=== PATIENT | female | born 1985 | race Caucasian/White ===

== ENCOUNTER 2021-02-21 05:22 | Emergency (ER) | payer BC ==
--- OUTSIDE RECORDS SUMMARY | 2021-02-21 05:24 | XMS REPORT | Continuity of Care Document ---
:1985 Author Organization [facility] t Address 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 Clinician Provider, [facility] Attending Clinician Unavailable Unknown Attending Clinician Unavailable Benitez AVINA Attending Clinician UNKNOWN Attending Clinician Unavailable Doctor Unassigned, Name Attending Clinician Unavailable Gwen AVINA Attending Clinician Elliot ALATORRE Attending Clinician Unavailable Payers Payer Name Policy Type Policy Number Effective Date Expiration Date S ource Problems Condition Condition Condition Status Onset Resolution Last Treating Co mments Source Name Details Category Date Date Treatment Clinician Date Vitamin D Vitamin D Disease Active Uni vers deficiency deficiency 7-11 it y of 00:00: [address] Multiple Multiple Disease Active Unive rs thyroid thyroid 8-25 ity of nodules nodules 00:00: [address] Prediabete Prediabete Disease Active U jaleesa s s 8-25 ity of 00:00: [address] Irregular Irregular Disease Active Uni vers menstrual menstrual 8-25 ity of cycle cycle 00:00: [address] Galactorrh Galactorrh Disease Active U jaleesa ea ea 8-25 ity of 00:00: [address] HLD HLD Disease Active Univers (hyperlipi (hyperlipi 8-25 it y of demia) demia) 00:00: [place] 00 [facility] Hirsutism Hirsutism Disease Active Uni vers 08-18 ity of 00:00: [place] 00 [facility] PCOS PCOS Disease Active Univers (polycysti (polycysti 08-18 it y of c ovarian c ovarian 00:[place] syndrome[place] syndrome[place] 00 [facility] Branch Status Status Disease Active Overview: Univer s post post 11-24 Formattin ity of 00:00: g of this Kenneth as delivery delivery 00 note Medica l might be Branch different from the original. ICD10 Diagnosis Term Climbing Guide Utility Asthma Asthma Disease Active Univers 11-17 ity of 00:00: [place] 00 [facility] Allergies, Adverse Reactions, Alerts Allergy Allergy Status Severity Reaction(s) Onset Inactive Treating Comm ents Source Name Type Date Date Clinician Penicill Propensi Active Unknown - Yeast Uni vers in ty to See comments 11-02 infection i ty of adverse 00:00: s [place] reaction [facility] [place] PENICILL DRUG Active Unknown-Cmnt Un jonathan IN INGREDI 11-02 ity of 00:00: [place] 00 [facility] Latex Propensi Active Rash 2014-03 Univers ty to 0-30 ity of adverse 00:00: [place] reaction [facility] LATEX DRUG Active Rash 2014-03 Univers INGREDI 0-30 ity of 00:00: [place] 00 [facility] Cabergol Propensi Active Hallucinatio Univers ine ty to ns 26 ity of adverse 00:00: [place] reaction [facility] [place] CABERGOL DRUG Active Hallucinates Un jonathan INE INGREDI 08-17 ity of 00:00: [place] 00 [facility] Social History Social Habit Start Date Stop Date Quantity Comments Source History [facility] University o f Alcohol Std Drinks [facility] History [facility] o f Alcohol Binge [facility] Branch Exposure to Not sure University SARS-CoV-2 (event) [facility] History of tobacco Cigarette Smoker University of use [facility] Cigarettes smoked 2017-11-02 2017-11-02 Univers ity of current (pack per 00:00:00 00:00:00 [facility] ) - Reported Branch Cigarette 2017-11-02 2017-11-02 University of pack-years 00:00:00 00:00:00 [facility] Tobacco use and 2017-11-02 2017-11-02 Never used Universit y of exposure 00:00:00 00:00:00 [facility] Alcohol intake 2017-11-02 2017-11-02 Current drinker Unive rsity of 00:00:00 00:00:00 of alcohol [facility] (finding) [place] Alcohol Comment 2017-11-02 2017-11-02 social drinker Unive rsity of 00:00:00 00:00:00 [facility] Sex [birth year] Universit y of 00:00:00 00:00:00 [facility] Smoking Status Start Date Stop Date Source Current every day smoker 2017-11-02 00:00:00 Uni versity of [facility] Medications Ordered Filled Start Stop Current Ordering Indication Dosage Frequency Signature Comments Components Source Medication Medication Date Date Medication? Clinician (SIG) Name Name dexamethaso 2020-03- No [id number] 10mg U nivers ne 0- 10- ity of (DECADRON 20:45: 19:55 [place] PHOSPHATE) 00 :00 Medical injection Branch 10 mg dexamethaso 2020-03- No [id number] 10mg 10 mg, Univers ne 0-17 01- Intramuscu ity of (DECADRON 20:45: 19:55 lar, ONCE, [place] PHOSPHATE) 00 :00 1 dose, On Med ical injection Tue Branch 10 mg 01/17/21 at 1545, Routine ALBUTEROL 2020-03- Yes Inhale. Univ ers INHALE 0-17 01- ity of 00:00: 04:59 [place] 00 :00 Medical Branch ALBUTEROL 2020-03- Yes Inhale. Univ ers INHALE 0-17 01- ity of 00:00: 04:59 [place] 00 :00 Medical Branch ALBUTEROL 2020-03- Yes Inhale. Univ ers INHALE 0-17 01- ity of 00:00: 04:59 [place] 00 :00 Medical Branch bromphenira 2020-03- Yes [id number] 5mL Take 5 mL Univers mine-pseudo 0-01-28 by mouth 4 i ty of ephedrine-D 00:00: 04:59 (four) Kenneth as M (BROMFED 00 :00 times Medical DM) 2-30-10 daily as Bran ch mg/5 mL needed for syrup Congestion /Allergies or Cough for up to 10 days. bromphenira 2020-03- Yes [id number] 5mL Take 5 mL Univers mine-pseudo 0-26 11-06 by mouth 4 i ty of ephedrine-D 00:00: 04:59 (four) [place] as M (BROMFED 00 :00 times Medical DM) 2-30-10 daily as Bran ch mg/5 mL needed for syrup Congestion /Allergies or Cough for up to 10 days. bromphenira 2020-03- Yes [id number] 5mL Take 5 mL Univers mine-pseudo 0-26 11-06 by mouth 4 i ty of ephedrine-D 00:00: 04:59 (four) [place] as M (BROMFED 00 :00 times Medical DM) 2-30-10 daily as Bran ch mg/5 mL needed for syrup Congestion /Allergies or Cough for up to 10 days. codeine-gua 2020-03- Yes 5mL Take 5 mL Univers ifenesin 0-26 11-03 by mouth ity of 10-100 mg/5 00:00: 04:59 at bedtime [place] mL oral 00 :00 as needed Medical solution for Cough Branch for up to 7 days. Indication s: cough codeine-gua 2020-03- Yes 5mL Take 5 mL Univers ifenesin 0-26 11-03 by mouth ity of 10-100 mg/5 00:00: 04:59 at bedtime [place] mL oral 00 :00 as needed Medical solution for Cough Branch for up to 7 days. Indication s: cough codeine-gua 2020-03- Yes 5mL Take 5 mL Univers ifenesin 0-26 11-03 by mouth ity of 10-100 mg/5 00:00: 04:59 at bedtime [place] mL oral 00 :00 as needed Medical solution for Cough Branch for up to 7 days. Indication s: cough acetaminoph 2017- Yes [id number] 03/26 Univers en-codeine 8-11 tab Every ity of 300-30 mg 00:00: 4hrs as [place] tablet 00 needed for Medical pain or Branch cough requiring narcotic acetaminoph Yes [id number] 1/2 - 1 Univers en-codeine 8-11 tab Every ity of 300-30 mg 00:00: 4hrs as [place] tablet 00 needed for Medical pain or Branch cough requiring narcotic acetaminoph 2018-0 Yes [id number] 03/26 - 1 Univers en-codeine 8-11 tab Every ity of 300-30 mg 00:00: 4hrs as [place] tablet 00 needed for Medical pain or Branch cough requiring narcotic acetaminoph 2018-0 Yes [id number] 03/26 - Univers en-codeine 8-11 tab Every ity of 300-30 mg 00:00: 4hrs as [place] tablet 00 needed for Medical pain or Branch cough requiring narcotic SYMBICORT 2014-0 Yes Univers 160-4.5 4-29 ity of mcg/actuati 00:00: [place] on inhaler 00 Medical Branch SYMBICORT 2015-0 Yes Univers 160-4.5 4-29 ity of mcg/actuati 00:00: [place] on inhaler 00 Medical Branch SYMBICORT 2015-0 Yes Univers 160-4.5 4-29 ity of mcg/actuati 00:00: [place] on inhaler 00 Medical Branch SYMBICORT 2015-0 Yes Univers 160-4.5 4-29 ity of mcg/actuati 00:00: [place] on inhaler 00 Medical Branch Immunizations Ordered Filled Immunization Date Status Comments [facility] e Immunization Name Name Pneumococcal 7 2009-03-25 Completed University of Conjugate, PCV7 00:00:00 [facility] (Prevnar7) Branch Pneumococcal 7 2009-03-25 Completed University of Conjugate, PCV7 00:00:00 [facility] (Prevnar7) Branch Pneumococcal 7 2009-03-25 Completed University of Conjugate, PCV7 00:00:00 [facility] (Prevnar7) Branch Pneumococcal 7 2009-03-25 Completed University of Conjugate, PCV7 00:00:00 [facility] (Prevnar7) Branch Influenza Virus 2009-02-22 Completed Universit y of Vaccine - Whole 00:00:00 [facility] Influenza Virus 2009-02-22 Completed Universit y of Vaccine - Whole 00:00:00 [facility] Influenza Virus 2009-02-22 Completed Universit y of Vaccine - Whole 00:00:00 [facility] Influenza Virus 2009-02-22 Completed Universit y of Vaccine - Whole 00:00:00 [facility] ical [place] Vital Signs Vital Name Observation Time Observation Value Comments Source Systolic blood 2021-01-17 19:14:00 130 mm[Hg] Univer sity of pressure [facility] Diastolic blood 2021-01-17 19:14:00 96 mm[Hg] Unive rsity of pressure [facility] Heart rate 2021-01-17 19:11:00 96 /min [facility] Body temperature 2021-01-17 19:11:00 36.67 Jael [facility] Respiratory rate 2021-01-17 19:11:00 16 /min [facility] Body height 2021-01-17 19:11:00 172.7 cm [facility] Body weight 2021-01-17 19:11:00 101.209 kg [facility] BMI 2021-01-17 19:11:00 33.93 kg/m2 [facility] Oxygen saturation in 2021-01-17 19:11:00 97 /min [facility] Arterial blood by [facility] Pulse oximetry Branch Procedures Procedure Date / Time Performed Performing Clinician Sour e XR CHEST 2 VW 2021-01-17 20:02:34 Ivan Phelps [facility] CONSENT/REFUSAL FOR 2021-01-17 18:51:35 Doctor Unassigned, No [facility] DIAGNOSIS AND Name Medical [place] TREATMENT ASSIGNMENT OF BENEFITS 2021-01-17 18:51:23 Doctor Unassigned, No [facility] Encounters Start End Encounter Admission Attending Care Care Encounter Source Date/Time Date/Time Type Type Clinicians Facility Department ID 2021-01-17 2021-01-[address] [facility] [id number] [facility] 14:40:30 23:59:00 Encounter [facility] [id number] Dodie [id number] Kenneth as Quentin?Blea [id number] Ia belle baer [address] [place] [facility] 2021-01-17 2021-01-17 Urgent Provider, [facility] [id number] Univers 13:58:03 15:06:49 Care Unknown, [facility] [id number] ity of Lacie Marquiston [id number] [place] Quentin?Blea [id number] [address] Medical Office [facility] 2021-01-17 2021-01-17 Outpatient R [facility] [id number] Univers 14:20:00 14:20:00 [id number] ity of [facility] 2021-01-17 2021-01-17 Outpatient R UNKNOWN, [facility] [id number] Univers 14:20:00 14:20:00 ATTENDING ity [facility] 2021-01-17 2021-01-17 Orders Doctor LAKSHMI [id number] Univers 00:00:00 00:00:00 Only Unassigned, GORDY [id number] ity of [place] [facility] [id number] Kenneth as [id number] [address] 2021-01-17 2021-01-17 Telephone [facility] [id number] Univers 00:00:00 00:00:00 , [facility] [id number] ity of [place] [id number] Kenneth as Quentin?Blea [id number] [address] Medical Office [facility] 2019-08-21 2019-08-21 [facility] [id number] Univers 09:30:00 09:30:00 DANA ity [facility] 2019-08-21 2019-08-21 Outpatient R [facility] [id number] Univers 09:30:00 09:30:00 [facility] [id number] [facility] This patient has no known results.
--- NOTE | 2021-02-21 06:10 | EDPHYS ---
Physician Documentation [facility] Name: Libra Baptiste Age: 35 yrs Sex: Female : 1985 Arrival Date: 02/21/2021 Time: 05:26 Bed 10 Private MD: ED Physician Noel Brito HPI: 02/21 06:04 This 35 yrs old Female presents to ER via Ambulatory with complaints of Eye rn Swelling, cough, congestion. 06:04 The patient is experiencing matting or discharge, tearing, The patient sustained None. rn to both eyes, caused by an unknown mechanism. Onset: The symptoms/episode began/occurred yesterday. Duration: the symptoms are continuous. Aggravated by closing eye, opening eye, rubbing, Alleviated by nothing. Associated signs and symptoms: Pertinent positives: runny nose. Patient wears soft contacts, has had LASIK surgery. Severity of symptoms: At their worst the symptoms were moderate in the emergency department the symptoms are unchanged. The patient has not experienced similar symptoms in the past. The patient has not recently seen a physician. Patient reports started yesterday with cough and congestion, some mild irritation of her eyes bilaterally, worsened today, now draining greenish clear fluid out of both eyes. No fever. No trauma or injury to eyes. No chemicals in eyes. Reports is having work done in the house and they were cutting [place] with dust everywhere and thinks irritated her sinuses and triggered her asthma.. 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 - Social history:: Smoking status: Patient reports the use of cigarette tobacco products, smokes one-half pack cigarettes per day. - Family history:: not pertinent. - Hospitalizations: : No recent hospitalization is reported. ROS: 06:04 Constitutional: Negative for fever, chills, and weight loss, Eyes: Positive for rn swelling and drainage ENT: Positive for sore throat and congestion Cardiovascular: Negative for chest pain, palpitations, and edema, Respiratory: Positive for cough Abdomen/GI: Negative for abdominal pain, nausea, vomiting, diarrhea, and constipation, MS/Extremity: Negative for injury and deformity, Skin: Negative for injury, rash, and discoloration, Neuro: Negative for numbness, tingling, and seizure. Exam: 06:04 Constitutional: This is a well developed, well nourished patient who is awake, alert, rn and in no acute distress. Head/Face: Normocephalic, atraumatic. Eyes: Bilateral periorbital swelling, clear/green drainage from both eyes, no corneal defects or ulcerations noted. Pupils equally round and reactive to light. No hyphema or hypopyon noticed. ENT: Mild pharyngeal erythema without stridor or exudate Cardiovascular: Tachycardic, regular. No pulse deficit Respiratory: Speaking full sentences, unlabored. No retractions Skin: Warm, dry MS/ Extremity: Pulses equal, no cyanosis. Neuro: Awake and alert, GCS 15 Vital Signs: 05:46 BP 139 / 98; Pulse 105; Resp 18; Temp 98.6(O); Pulse Ox 98% on R/A; Weight 101.6 kg lp1 (R); Height 5 ft. 8 in. (172.72 cm); Pain 8/10; 05:46 Body Mass Index 34.06 (101.60 kg, 172.72 cm) lp1 MDM: 05:58 Patient medically screened. rn 06:04 Differential diagnosis: Allergic conjunctivitis in Infectious conjunctivitis in Viral rn syndrome, allergic phenomena, asthma. Data reviewed: vital signs, nurses notes, and as a result, I will discharge patient. Counseling: I had a detailed discussion with the patient and/or guardian regarding: the historical points, exam findings, and any diagnostic results supporting the discharge/admit diagnosis, the need for outpatient follow up, to return to the emergency department if symptoms worsen or persist or if there are any questions or concerns that arise at home. Special discussion: I discussed with the patient/guardian in detail that at this point there is no indication for admission to the hospital. It is understood, however, that if the symptoms persist or worsen the patient needs to return immediately for re-evaluation. Based on the history and exam findings, there is no indication for further emergent testing or inpatient evaluation. I discussed with the patient/guardian the need to see the primary care provider for further evaluation of the symptoms. Administered Medications: 06:20 Drug: SOLU-Medrol (methylPREDNISolone sodium succinate) 125 mg Route: IM; Site: right lp1 gluteus; 06:56 Follow up: Response: No adverse reaction lp1 06:31 Drug: Xopenex (levalbuterol) 1.25 mg Route: Inhalation; lp1 06:56 Follow up: Response: No adverse reaction; Marked relief of symptoms lp1 Disposition Summary: 02/21/21 06:09 Discharge Ordered Location: Home rn Problem: new rn Symptoms: have improved rn Condition: Stable rn Diagnosis - Unspecified acute conjunctivitis, bilateral rn - Unspecified asthma, uncomplicated rn - Allergic rhinitis, unspecified rn Followup: rn - With: Private Physician - When: As needed - Reason: Recheck today's complaints, Re-evaluation by your physician Discharge Instructions: - Discharge Summary Sheet rn - Bacterial Conjunctivitis, Adult rn - How to Use Eye Drops and Eye Ointments rn - Allergic Rhinitis, Adult rn Forms: - Medication Reconciliation Form rn - Thank You Letter rn - Antibiotic flame burner - Prescription Opioid Use rn Prescriptions: - Prednisone 20 mg Oral Tablet - take 3 tablets by ORAL route once daily for 5 days; 15 tablet; Refills: 0, rn Product Selection Permitted - Vigamox 0.5 % Ophthalmic Drops - instill 1 drop by OPHTHALMIC route every 8 hours for 7 days; 5 milliliter; rn Refills: 0, Product Selection Permitted Signatures: Noel Brito MD MD rn Pena, Laura, RN RN lp1
--- NOTE | 2021-02-21 06:10 | ER ---
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 Coronavirus screen: At this time, the client does not indicate any symptoms associated with coronavirus-19. Ebola Screen: No symptoms or risks identified at this time. Initial Sepsis Screen: Does the patient meet any 2 criteria? No. Patient's initial sepsis screen is negative. Does the patient have a suspected source of infection? No. Patient's initial sepsis screen is negative. Risk Assessment: Do you want to hurt yourself or someone else? Patient reports no desire to harm self or others. Onset of symptoms was February 21, 2021. 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 - Social history:: Smoking status: Patient reports the use of cigarette tobacco products, smokes one-half pack cigarettes per day. - Family history:: not pertinent. - Hospitalizations: : No recent hospitalization is reported. Screenin:55 Abuse screen: Denies threats or abuse. Denies injuries from another. Nutritional lp1 screening: No deficits noted. Tuberculosis screening: No symptoms or risk factors identified. Fall Risk None identified. Assessment: 05:55 General: Appears in no apparent distress. Behavior is calm, cooperative. Pain: lp1 Complains of pain in right eye and left eye Pain currently is 8 out of 10 on a pain scale. Quality of pain is described as burning. Neuro: No deficits noted. Cardiovascular: Patient's skin is warm and dry. Respiratory: Airway is patent Respiratory effort is even, unlabored. GI: No signs and/or symptoms were reported involving the gastrointestinal system. : No signs and/or symptoms were reported regarding the genitourinary system. EENT: Eyes are tearing on right eye and left eye left upper eyelid noted to have edema and swelling,. Reports nasal congestion. Derm: Skin is pink, warm \\T\\ dry. Musculoskeletal: No deficits noted. 06:46 Reassessment: Provider notified of patient reporting, "I just feel like my chest is lp1 tight and I can't get a good breath". Vital Signs: 05:46 BP 139 / 98; Pulse 105; Resp 18; Temp 98.6(O); Pulse Ox 98% on R/A; Weight 101.6 kg lp1 (R); Height 5 ft. 8 in. (172.72 cm); Pain 8/10; 05:46 Body Mass Index 34.06 (101.60 kg, 172.72 cm) lp1 ED Course: 05:26 Patient arrived in ED. wm 05:54 Triage completed. lp1 05:54 Arm band placed on. lp1 05:55 Patient has correct armband on for positive identification. lp1 05:58 Noel Brito MD is Attending Physician. rn 06:12 Isidra Bourgeois RN is Primary Nurse. lp1 06:47 No provider procedures requiring assistance completed. Patient did not have IV access lp1 during this emergency room visit. Administered Medications: 06:20 Drug: SOLU-Medrol (methylPREDNISolone sodium succinate) 125 mg Route: IM; Site: right lp1 gluteus; 06:56 Follow up: Response: No adverse reaction lp1 06:31 Drug: Xopenex (levalbuterol) 1.25 mg Route: Inhalation; lp1 06:56 Follow up: Response: No adverse reaction; Marked relief of symptoms lp1 Outcome: 06:09 Discharge ordered by . rn 06:56 Discharged to home ambulatory. lp1 06:56 Condition: good 06:56 Discharge instructions given to patient, Instructed on discharge instructions, follow up and referral plans. medication usage, Demonstrated understanding of instructions, follow-up care, medications, Prescriptions given X 2. 06:59 Patient left the ED. lp1 Signatures: Noel Brito MD MD rn Isidra Bourgeois RN RN lp1 Raiza Machado
[2021-02-21] MEDS ORDERED: METHYLPREDNISOLONE 125 MG INJ ONE (06:12)
[2021-02-21] MEDS ORDERED: LEVALBUTEROL 1.25 MG/3 ML NEB ONE (06:28)
[2021-02-21 07:06] VITALS: BP 139/98; TEMP 98.6; O2SAT 98
== END 2021-02-21 06:59 | disposition home or self-care (01) ==
LOC: ER 05:22
DX: H10.33 Unspecified acute conjunctivitis, bilateral (principal); J45.909 Unspecified asthma, uncomplicated; Z88.0 Allergy status to penicillin; F17.210 Nicotine dependence, cigarettes, uncomplicated
CPT/HCPCS: 96372; 99284; J2930

== ENCOUNTER 2023-03-03 07:26 | Emergency (ER) | payer BC ==
--- OUTSIDE RECORDS SUMMARY | 2023-03-03 07:28 | XMS REPORT | Continuity of Care Document ---
Author Name Unknown Address [address] [facility] [address] [place] [address] [facility] Address [address] [facility] 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 Attending Clinician [phone] Provider, [facility] Attending Clinician Unavailable Unknown, Attending Attending Clinician UnavailLacie Lai MD Attending Clinician [phone] UNKNOWN, ATTENDING Attending Clinician Unavailab luis Doctor Unassigned, [place]ool Attending Clinician U Kimberli Vincent MD Attending Clinician [phone] DANA ALATORRE Attending Clinician Unavailable Payers Payer Name Policy Type Policy Number Effective Date Expirati on Date Source Problems Condition Name Condition Details Condition Category Status Onset Date Resolution Date Last Treatment Date Treating Clinician Comments Source Vitamin D deficiency Vitamin D deficiency Disease Active 10-02 00:00: 00 [facility] Multiple thyroid nodules Multiple thyroid nodules Disease Active 11-16 00:00: 00 [facility] Prediabete s Prediabete s Disease Active 11-16 00:00: 00 [facility] Irregular menstrual cycle Irregular menstrual cycle Disease Active 11-16 00:00: 00 [facility] Galactorrh ea Galactorrh ea Disease Active 11-16 00:00: 00 [facility] HLD (hyperlipi demia) HLD (hyperlipi demia) Disease Active 11-16 00:00: 00 [facility] Hirsutism Hirsutism Disease Active 08-18 00:00: 00 [facility] PCOS (polycysti c ovarian syndrome) PCOS (polycysti c ovarian syndrome) Disease Active 08-18 00:00: 00 [facility] Status post delivery Status post delivery Disease Active 11-24 00:00: 00 Overview: Formattin g of this note might be different from the original. 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 [facility] Asthma Asthma Disease Active 11-17 00:00: 00 [facility] Allergies, Adverse Reactions, Alerts Allergy Name Allergy Type Status Severity Reaction(s) Onset Date Inactive Date Treating Clinician Comments Source Penicill in Propensi ty to adverse reaction s Active Unknown - See comments 11-02 00:00: 00 Yeast infection s [facility] PENICILL IN DRUG INGREDI Active Unknown-Cmnt 11-02 00:00: 00 [facility] Latex Propensi ty to adverse reaction s Active Rash 2014-03 00:00: 00 [facility] LATEX DRUG INGREDI Active Rash 2014-03 00:00: 00 [facility] Cabergol ine Propensi ty to adverse reaction s Active Hallucinatio ns 08-17 00:00: 00 [facility] CABERGOL INE DRUG INGREDI Active Hallucinates 08-17 00:00: 00 [facility] Social History Social Habit Start Date Stop Date Quantity Comments Source History SDOH Alcohol Frequency [facility] History SDOH Alcohol Std Drinks [facility] History SDOH Alcohol Binge [facility] Exposure to SARS-CoV-2 (event) Not sure [facility] History of tobacco use Cigarette Smoker [facility] Cigarette pack-years 2017-11-02 00:00:00 2017-11-02 00:00:00 [facility] Tobacco use and exposure 2017-11-02 00:00:00 2017-11-02 00:00:00 Never used [facility] Alcohol intake 2017-11-02 00:00:00 2017-11-02 00:00:00 Current drinker of alcohol (finding) [facility] Alcohol Comment 2017-11-02 00:00:00 2017-11-02 00:00:00 social drinker [facility] Cigarettes smoked current (pack per day) - Reported 2017-11-02 00:00:00 2017-11-02 00:00:00 [facility] Sex Assigned At 1985 00:00:00 1985 00:00:00 [facility] Smoking Status Start Date Stop Date Source Current every day smoker 2017-11-02 00:00:00 [facility] Medications Ordered Medication Name Filled Medication Name Start Date Stop Date Current Medication? Ordering Clinician Indication Dosage Frequency Signature (SIG) Comments Components Source dexamethaso ne (DECADRON PHOSPHATE) injection 10 mg 2020-03 20:45: 00 01-17 19:55 :00 No [id number] 10mg [facility] dexamethaso ne (DECADRON PHOSPHATE) injection 10 mg 2020-03 20:45: 00 01-17 19:55 :00 No [id number] 10mg 10 mg, Intramuscu lar, ONCE, 1 dose, On Sat01/17/21 at 1545, Routine [facility] ALBUTEROL INHALE 2020-03 00:00: 00 01-18 04:59 :00 No Inhale. [facility] ALBUTEROL INHALE 2020-03 00:00: 00 01-18 04:59 :00 No Inhale. [facility] ALBUTEROL INHALE 2020-03 00:00: 00 01-18 04:59 :00 No Inhale. [facility] bromphenira mine-pseudo ephedrine-D M (BROMFED DM) 2-30-10 mg/5 mL syrup 2020-03 00:00: 00 01-28 04:59 :00 No [id number] 5mL Take 5 mL by mouth 4 (four) times daily as needed for Congestion /Allergies or Cough for up to 10 days. [facility]-pseudo ephedrine-D M (BROMFED DM) 2-30-10 mg/5 mL syrup 2020-03 0-26 00:00: 00 01-28 04:59 :00 No [id number] 5mL Take 5 mL by mouth 4 (four) times daily as needed for Congestion /Allergies or Cough for up to 10 days. [facility] bromphenira mine-pseudo ephedrine-D M (BROMFED DM) 2-30-10 mg/5 mL syrup 2020-03 0 00:00: 00 01-28 04:59 :00 No [id number] 5mL Take 5 mL by mouth 4 (four) times daily as needed for Congestion /Allergies or Cough for up to 10 days. [facility] codeine-gua ifenesin 10-100 mg/5 mL oral solution 2020-03 0 00:00: 00 01-25 04:59 :00 No 5mL Take 5 mL by mouth at bedtime as needed for Cough for up to 7 days. Indication s: cough [facility] codeine-gua ifenesin 10-100 mg/5 mL oral solution 2020-03 0 00:00: 00 01-25 04:59 :00 No 5mL Take 5 mL by mouth at bedtime as needed for Cough for up to 7 days. Indication s: cough [facility] codeine-gua ifenesin 10-100 mg/5 mL oral solution 2020-03 0 00:00: 00 01-25 04:59 :00 No 5mL Take 5 mL by mouth at bedtime as needed for Cough for up to 7 days. Indication s: cough [facility] acetaminoph en-codeine 300-30 mg tablet 11-02 00:00: 00 Yes [id number] 1/2 - 1 tab Every 4hrs as needed for pain or cough requiring narcotic [facility] acetaminoph en-codeine 300-30 mg tablet 11-02 00:00: 00 Yes [id number] 1/2 - 1 tab Every 4hrs as needed for pain or cough requiring narcotic [facility] acetaminoph en-codeine 300-30 mg tablet 11-02 00:00: 00 Yes [id number] 1/2 - 1 tab Every 4hrs as needed for pain or cough requiring narcotic [facility] acetaminoph en-codeine 300-30 mg tablet 11-02 00:00: 00 Yes [id number] 1/2 - 1 tab Every 4hrs as needed for pain or cough requiring narcotic [facility] SYMBICORT 160-4.5 mcg/actuati on inhaler 07-21 00:00: 00 Yes [facility] SYMBICORT 160-4.5 mcg/actuati on inhaler 07-21 00:00: 00 Yes [facility] SYMBICORT 160-4.5 mcg/actuati on inhaler 07-21 00:00: 00 Yes [facility] SYMBICORT 160-4.5 mcg/actuati on inhaler 07-21 00:00: 00 Yes [facility] Vital Signs Vital Name Observation Time Observation Value Comments S ource Systolic blood pressure 2021-01-17 19:14:00 130 mm[Hg] [facility] Diastolic blood pressure 2021-01-17 19:14:00 96 mm[Hg] [facility] Heart rate 2021-01-17 19:11:00 96 [facility] Body temperature 2021-01-17 19:11:00 36.67 Jael [facility] Respiratory rate 2021-01-17 19:11:00 16 /min [facility] Body height 2021-01-17 19:11:00 172.7 cm [facility] Body weight 2021-01-17 19:11:00 101.209 kg [facility] BMI 2021-01-17 19:11:00 33.93 kg/m2 [facility] Oxygen saturation in Arterial blood by Pulse oximetry 2021-01-17 19:11:00 97 /min [facility] Procedures Procedure Date / Time Performed Performing Clinicia n Source XR CHEST 2 VW 2021-01-17 20:02:[address]US[facility] FOR DIAGNOSIS AND TREATMENT 2021-01-17 18:51:35 Doctor Unassigned, Mccool [facility] ASSIGNMENT OF BENEFITS 2021-01-17 18:51:23 Docto r Unassigned, Mccool [facility] Encounters Start Date/Time End Date/Time Encounter Type Admission Type Attending Clinicians Care Facility Care Department Encounter ID Source 2021-01-17 14:40:30 2021-01-17 23:59:00 Hospital Encounter Ivan Phelps [facility] 1..[id number] [facility] 2021-01-17 13:58:03 2021-01-17 15:06:49 Urgent Care Provider, [facility] Unknown, Attending Lacie Marquis [facility] 1..[id number] [facility] 2021-01-17 14:20:00 2021-01-17 14:20:00 Outpatient R [facility] [id number] [facility] 2021-01-17 14:20:00 2021-01-17 14:20:00 Outpatient R UNKNOWN, ATTENDING [facility] [id number] [facility] 2021-01-17 00:00:00 2021-01-17 00:00:00 Orders Only Doctor Unassigned, Mccool [facility] 1..[id number] [facility] 2021-01-17 00:00:2021-01-17 00:00:00 Telephone Gwen Kimberli [facility] Ileana Saavedra[facility] [id number] [facility] 2019-08-21 09:30:00 2019-08-21 09:30:00 Outpatient DANA HERNANDEZ [facility] [id number] [facility] 2019-08-21 09:30:00 2019-08-21 09:30:00 Outpatient DANA HERNANDEZ [facility] [id number] [facility]
[2023-03-03] MEDS ORDERED: NA CHLORIDE 0.9% 1,000 ML ONE (08:02)
[2023-03-03 08:04] LABS: Absolute Lymphocytes (CBC) 0.2 K/uL (0.7-4.9); Hematocrit 42.4 % (36.0-45.0); Lymphocytes % 4.2 % (15.3-44.8); MCV 84.1 fL (80-100); MPV 7.2 fL (7.6-11.3); Platelets 294 thou/uL (152-406); RBC Red Blood Cell Count 5.04 M/uL (3.86-4.86)
[2023-03-03 08:16] LABS: Potassium 3.2 mEq/L (3.5-5.1)
[2023-03-03 08:28] LABS: SARS-CoV-2 Antigen Rapid Res Negative (Negative)
--- NOTE | 2023-03-03 08:38 | RAD REPORT ---
EXAM DESCRIPTION: RAD - Chest Pa And Lat (2 Views) - 03/03/2023 8:31 am CLINICAL HISTORY: DYSPNEA Chest pain. COMPARISON: Chest Pa And Lat (2 Views) dated 08/15/2020; Chest Pa And Lat (2 Views) dated 08/28/2019; C HEST PA AND LAT 2 VIEW dated 06/13/2011; CHEST PA AND LAT 2 VIEW dated 11/14/2009 FINDINGS: Slight prominence of the interstitial markings could be related to viral infection or reac tive airway disease. No focal consolidation typical of pneumonia is seen. The heart is normal in size . No displaced fractures. Small hiatal hernia.
--- NOTE | 2023-03-03 08:54 | EDPHYS ---
Physician Documentation [facility] Name: Libra Baptiste Age: 37 yrs Sex: Female : 1985 Arrival Date: 03/03/2023 Time: 07:26 Bed 8 Private MD: ED Physician Tal Blake HPI: 03/03 07:45 This 37 yrs old Female presents to ER via Ambulatory with complaints of Flu Symptoms, ms3 Breathing Difficulty. 07:45 37-year-old female with past medical history of asthma presents to the emergency ms3 department for shortness of breath that began yesterday along with flulike symptoms, body aches and a fever of 101. 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 Patient denies any alleviating or inciting factors. Patient endorses nausea, vomiting, fevers, chills.. Historical: - Allergies: 07:52 Amoxicillin; iw - PMHx: 07:52 Asthma; iw - PSHx: 07:52 Appendectomy; ; tubal ligation; iw - Immunization history:: Adult Immunizations unknown. - Social history:: Smoking status: Patient denies any tobacco usage or history of. ROS: 07:45 Cardiovascular: Negative for chest pain, and palpitations. ms3 07:45 Abdomen/GI: Negative for abdominal pain, nausea, vomiting, diarrhea, and constipation, MS/Extremity: Negative for injury and deformity, 07:45 Constitutional: Positive for body aches, chills, fever, 07:45 Respiratory: Positive for shortness of breath, 07:45 All other systems are negative, Exam: 07:45 Constitutional: This is a well developed, well nourished patient who is awake, alert, ms3 and in no acute distress. Neck: Trachea midline, no cervical lymphadenopathy. Supple, full range of motion without nuchal rigidity, or vertebral point tenderness. No Meningismus. Chest/axilla: Normal chest wall appearance and motion. Nontender with no deformity. Respiratory: Lungs have equal breath sounds bilaterally, clear to auscultation and percussion. No rales, rhonchi or wheezes noted. No increased work of breathing, no retractions or nasal flaring. Abdomen/GI: Soft, non-tender, with normal bowel sounds. No distension or tympany. No guarding or rebound. No evidence of tenderness throughout. Skin: Warm, dry with normal turgor. Normal color with no rashes, no lesions, and no evidence of cellulitis. 07:45 Cardiovascular: Rate: tachycardic, Rhythm: regular, Pulses: no pulse deficits are appreciated, Vital Signs: 07:31 BP 133 / 97; Pulse 128; Resp 20; Temp 98.1; Pulse Ox 95% on R/A; Weight 88.45 kg; iw Height 5 ft. 8 in. ; 07:43 BP 129 / 93; Pulse 80; Resp 18; Pulse Ox 97% on R/A; rs5 09:46 BP 126 / 95; Pulse 98; Resp 16; Pulse Ox 95% on R/A; ko1 07:31 Body Mass Index 29.65 (88.45 kg, 172.72 cm) iw MDM: 07:44 Patient medically screened. ms3 07:47 Differential diagnosis: pneumonia, Flu vs COVID. ms3 08:54 Data reviewed: vital signs, lab test result(s), radiologic studies, and as a result, I ms3 will discharge patient. I considered the following discharge prescriptions or medication management in the emergency department Medications were administered in the Emergency Department. See MAR. Independent interpretation of the following test(s) in the Emergency Department X-Ray: My interpretation is CXR images reviewed by me do not reveal pneumonia. Care significantly affected by the following chronic conditions: asthma. Counseling: I had a detailed discussion with the patient and/or guardian regarding the historical points, exam findings, and any diagnostic results supporting the discharge/admit diagnosis, lab results, radiology results, the need for outpatient follow up, to return to the emergency department if symptoms worsen or persist or if there are any questions or concerns that arise at home. Special discussion: I discussed with the patient/guardian in detail that at this point there is no indication for admission to the hospital. It is understood, however, that if the symptoms persist or worsen the patient needs to return immediately for re-evaluation. ED course: Discussed chest x-ray and positive flu a results with patient. Patient given Tamiflu and albuterol inhaler. Patient to follow-up Dr. Foss in 2 to 3 days. Patient understands and agrees with plan. All questions were answered. Return precautions discussed include worsening symptoms, or any other concerns. 03/03 07:45 Order name: Flu; Complete Time: 08:45 ms3 03/03 07:45 Order name: SARS RAPID; Complete Time: 08:45 ms3 03/03 07:45 Order name: CBC with Diff; Complete Time: 09:21 ms3 03/03 07:45 Order name: BMP; Complete Time: 08:23 ms3 03/03 09:11 Order name: Manual Differential; Complete Time: 09:21 EDMS 03/03 07:45 Order name: Chest Pa And Lat (2 Views) XRAY; Complete Time: 08:45 ms3 Administered Medications: 07:50 Drug: NS 0.9% IV 1000 ml IV at 1000 ml once Route: IV; Rate: 1000 ml; Site: right rs5 antecubital; 08:05 Follow up: Response: No adverse reaction rs5 09:04 Drug: DuoNeb Nebulize (3:1) (2.5 mg - 0.5 mg) 3 ml Nebulizer once Route: Nebulizer; rs5 09:13 Follow up: Response: No adverse reaction rs5 09:04 Drug: Potassium Chloride PO 40 mEq PO once Route: PO; rs5 09:13 Follow up: Response: No adverse reaction rs5 Disposition Summary: 03/03/23 08:54 Discharge Ordered Notes: Location: Home ms3 Condition: Stable ms3 Diagnosis - Influenza due to identified novel influenza A virus ms3 - Shortness of breath ms3 Followup: ms3 - With: Jonathan Foss DO - When: 2 - 3 days - Reason: Recheck today's complaints Discharge Instructions: - Discharge Summary Sheet ms3 - Influenza, Adult ms3 - Shortness of Breath, Adult ms3 Forms: - Medication Reconciliation Form ms3 - Thank You Letter ms3 - Antibiotic Education ms3 - Prescription Opioid Use ms3 - Patient Portal Instructions ms3 - Leadership Thank You Letter ms3 Prescriptions: - albuterol sulfate 90 mcg/actuation Inhalation HFA Aerosol Inhaler - inhale 2 puff INHALATION route every 2 to 4 hours as needed for bronchospasm; ms3 administer via ventilator; 1 unit; Refills: 0, Product Selection Permitted - Tamiflu 75 mg Oral capsule - take 1 tablet ORAL route every 12 hours for 5 days; 10 tablet; Refills: 0, ms3 Product Selection Permitted Signatures: Dispatcher [employer] Tonya Oseguera RN RN iw Sims, Marcus, DO DO ms3 Sebastian Correa, RN RN rs5
--- NOTE | 2023-03-03 08:54 | ER ---
Nurse's Notes [facility] Name: Libra Baptiste Age: 37 yrs Sex: Female : 1985 Arrival Date: 03/03/2023 Time: 07:26 Bed 8 Private MD: Diagnosis: Influenza due to identified novel influenza A virus;Shortness of breath Presentation: 03/03 07:31 Chief complaint: Patient states: fatigue, fever, body aches, since yesterday , iw difficulty breathing, hx of asthma. Coronavirus screen: Client presents with at least one sign or symptom that may indicate coronavirus-19. Ebola Screen: Patient negative for fever greater than or equal to 101.5 degrees Fahrenheit, and additional compatible Ebola Virus Disease symptoms Patient denies exposure to infectious person. Patient denies travel to an Ebola-affected area in the 21 days before illness onset. No symptoms or risks identified at this time. Initial Sepsis Screen: Does the patient meet any 2 criteria? HR > 90 bpm. Does the patient have a suspected source of infection?. Risk Assessment: Do you want to hurt yourself or someone else? Patient reports no desire to harm self or others. Onset of symptoms was March 02, 2023. 07:31 Method Of Arrival: Ambulatory iw 07:31 Acuity: SHIV 3 iw Triage Assessment: 07:40 General: Appears in no apparent distress. uncomfortable, Behavior is cooperative. rs5 Respiratory: the patient has mild shortness of breath. Historical: - Allergies: 07:52 Amoxicillin; iw - PMHx: 07:52 Asthma; iw - PSHx: 07:52 Appendectomy; ; tubal ligation; iw - Immunization history:: Adult Immunizations unknown. - Social history:: Smoking status: Patient denies any tobacco usage or history of. Screenin:40 [facility] ED Fall Risk Assessment (Adult) History of falling in the last 3 months, rs5 including since admission No falls in past 3 months (0 pts) Confusion or Disorientation No (0 pts) Intoxicated or Sedated No (0 pts) Impaired Gait No (0 pts) Mobility Assist Device Used No (0 pt) Altered Elimination No (0 pt) Score/Fall Risk Level 0 - 2 = Low Risk Oriented to surroundings, Maintained a safe environment. Abuse screen: Denies threats or abuse. Nutritional screening: No deficits noted. Tuberculosis screening: No symptoms or risk factors identified. Assessment: 07:35 General: Appears in no apparent distress. uncomfortable, Behavior is cooperative. Pain: rs5 Complains of pain in generalized body aches Pain does not radiate. Pain currently is 5 out of 10 on a pain scale. Quality of pain is described as aching, Pain began gradually, Is continuous. Neuro: Level of Consciousness is awake, alert, obeys commands, Oriented to person, place, time, situation. Cardiovascular: Heart tones S1 S2 present Rhythm is regular. Respiratory: Reports shortness of breath intermittently cough that is non-productive, Airway is patent Respiratory effort is even, unlabored, Respiratory pattern is regular, symmetrical, Breath sounds are clear bilaterally. GI: Abdomen is round non-distended, Bowel sounds present X 4 quads. Abd is soft and non tender X 4 quads. : No signs and/or symptoms were reported regarding the genitourinary system. EENT: No signs and/or symptoms were reported regarding the EENT system. Derm: Skin is intact, Skin is pink, warm \T\ dry. Musculoskeletal: Range of motion: intact in all extremities. 08:40 Reassessment: Patient and/or family updated on plan of care and expected duration. Pain rs5 level reassessed. Patient is alert, oriented x 3, equal unlabored respirations, skin warm/dry/pink. 09:12 Reassessment: Provider at bedside. rs5 09:29 Reassessment: Pt up for discharge, awaiting breathing treatment to finish before rs5 discharging pt per MD orders. Vital Signs: 07:31 BP 133 / 97; Pulse 128; Resp 20; Temp 98.1; Pulse Ox 95% on R/A; Weight 88.45 kg; iw Height 5 ft. 8 in. ; 07:43 BP 129 / 93; Pulse 80; Resp 18; Pulse Ox 97% on R/A; rs5 09:46 BP 126 / 95; Pulse 98; Resp 16; Pulse Ox 95% on R/A; ko1 07:31 Body Mass Index 29.65 (88.45 kg, 172.72 cm) iw ED Course: 07:29 Patient arrived in ED. im 07:33 Triage completed. iw 07:34 Sebastian Correa, HOLA is Primary Nurse. rs5 07:34 Tal Blake DO is Attending Physician. ms3 07:40 Patient has correct armband on for positive identification. Placed in gown. Bed in low rs5 position. Call light in reach. Side rails up X2. 07:50 Inserted saline lock: 22 gauge in right antecubital area, using aseptic technique. rs5 07:58 Initial lab(s) drawn, by me, sent to lab. rs5 07:59 No provider procedures requiring assistance completed. rs5 08:33 Chest Pa And Lat (2 Views) XRAY In Process Unspecified. EDMS 08:54 Jonathan Foss DO is Referral Physician. ms3 09:53 IV discontinued, intact, bleeding controlled, No redness/swelling at site. Pressure rs5 dressing applied. Administered Medications: 07:50 Drug: NS 0.9% IV 1000 ml IV at 1000 ml once Route: IV; Rate: 1000 ml; Site: right rs5 antecubital; 08:05 Follow up: Response: No adverse reaction rs5 09:04 Drug: DuoNeb Nebulize (3:1) (2.5 mg - 0.5 mg) 3 ml Nebulizer once Route: Nebulizer; rs5 09:13 Follow up: Response: No adverse reaction rs5 09:04 Drug: Potassium Chloride PO 40 mEq PO once Route: PO; rs5 09:13 Follow up: Response: No adverse reaction rs5 Medication: 09:12 VIS not applicable for this client. rs5 Outcome: 08:54 Discharge ordered by MD. ms3 09:53 Discharged to home ambulatory, rs5 09:53 Condition: stable 09:53 Discharge instructions given to patient, Instructed on discharge instructions, follow up and referral plans. medication usage, Demonstrated understanding of instructions, follow-up care, medications, Prescriptions given X 2, 09:54 Patient left the ED. rs5 Signatures: Dispatcher [employer] EDMS Tonya Almodovar RN RN iw Tal Blake DO DO ms3 Ariella Pineda RN RN ko1 Sebastian Correa RN RN rs5 Keena Maradiaga Corrections: (The following items were deleted from the chart) 07:45 07:35 Respiratory: Airway is patent Respiratory effort is even, unlabored, Respiratory rs5 pattern is regular, symmetrical, Breath sounds are clear bilaterally. rs5
[2023-03-03 09:10] LABS: Blood Morphology Comment NOT SEEN (NOT SEEN); Platelet Estimate ADEQ
[2023-03-03] MEDS ORDERED: POTASSIUM CL SA 10 MEQ TAB PO ONE (09:13)
[2023-03-03] MEDS ORDERED: ALBUTEROL 2.5 MG/3 ML NEB SOL ONE (09:13)
[2023-03-03] MEDS ORDERED: IPRATROPIUM BROM 0.5MG/2.5ML ONE (09:14)
[2023-03-03 10:18] VITALS: TEMP 98.1; O2SAT 95
[2023-03-03 10:20] VITALS: BP 126/95
== END 2023-03-03 09:54 | disposition home or self-care (01) ==
LOC: ER 07:26
DX: J09.X2 Influenza due to identified novel influenza A virus with other respiratory manifestations (principal); R06.02 Shortness of breath; R53.83 Other fatigue; R50.9 Fever, unspecified; Z20.822 Contact with and (suspected) exposure to COVID-19; Z11.52 Encounter for screening for COVID-19; Z88.1 Allergy status to other antibiotic agents; J45.909 Unspecified asthma, uncomplicated
CPT/HCPCS: 85025; 80048; 36415; 87804 ×2; 71046; 94640; 99285; 87811; J7613; J7644; J7030

== ENCOUNTER → 2023-03-14 | Emergency (ER) | payer BC ==
[~2023-03-14] MED LIST: LACTULOSE 20 GM/30 ML UCUP ONE; NA CHLORIDE 0.9% 1,000 ML ONE
--- OUTSIDE RECORDS SUMMARY | 2023-03-14 15:26 | XMS REPORT | Continuity of Care Document ---
Author Name Unknown Address [address] [facility] [address] [place] [address] [facility] Address [address] [facility] [address] [place] [address] Care Team Providers Care Ship Steward Name Role Phone Racquel David Primary Care Physician [phone] [place] RADIOCOMMUNICATIONS TECHNICIANIvan Attending Clinician [phone] Provider, [facility] Attending Clinician Unavailable Unknown, Attending Attending Clinician UnavailLacie Lai MD Attending Clinician [phone] UNKNOWN, ATTENDING Attending Clinician Unavailab luis Doctor Unassigned, [place] Attending Clinician U Kimberli Vincent MD Attending Clinician [phone] DANA ALATORRE Attending Clinician Unavailable Payers Payer Name Policy Type Policy Number Effective Date Expirati on Date Source Problems Condition Name Condition Details Condition Category Status Onset Date Resolution Date Last Treatment Date Treating Clinician Comments Source Vitamin D deficiency Vitamin D deficiency Disease Active 10-02 00:00: 00 [facility] Multiple thyroid nodules Multiple thyroid nodules Disease Active 11-16 00:00: 00 [facility] Prediabete s Prediabete s Disease Active 11-16 00:00: 00 [facility] Irregular menstrual cycle Irregular menstrual cycle Disease Active 11-16 00:00: 00 [facility] Galactorrh ea Galactorrh ea Disease Active 11-16 00:00: 00 [facility] HLD (hyperlipi demia) HLD (hyperlipi demia) Disease Active 11-16 00:00: 00 [facility] Hirsutism Hirsutism Disease Active 08-18 00:00: 00 [facility] PCOS (polycysti c ovarian syndrome) PCOS (polycysti c ovarian syndrome) Disease Active 08-18 00:00: 00 [facility] Status post delivery Status post delivery Disease Active 11-24 00:00: 00 Overview: Formattin g of this note might be different from the original. ICD10 Diagnosis Term Mice Raiser Utility [facility] Asthma Asthma Disease Active 11-17 00:00: 00 [facility] Allergies, Adverse Reactions, Alerts Allergy Name Allergy Type Status Severity Reaction(s) Onset Date Inactive Date Treating Clinician Comments Source Penicill in Propensi ty to adverse reaction s Active Unknown - See comments 11-02 00:00: 00 Yeast infection s [facility] PENICILL IN DRUG INGREDI Active Unknown-Cmnt 11-02 00:00: 00 [facility] Latex Propensi ty to adverse reaction s Active Rash 2014-03 00:00: 00 [facility] LATEX DRUG INGREDI Active Rash 2014-03 00:00: 00 [facility] Cabergol ine Propensi ty to adverse reaction s Active Hallucinatio ns 08-17 00:00: 00 [facility] CABERGOL INE DRUG INGREDI Active Hallucinates 08-17 00:00: 00 [facility] Social History Social Habit Start Date Stop Date Quantity Comments Source History SDOH Alcohol Frequency [facility] History SDOH Alcohol Std Drinks [facility] History SDOH Alcohol Binge [facility] Exposure to SARS-CoV-2 (event) Not sure [facility] History of tobacco use Cigarette Smoker [facility] Cigarette pack-years 2017-11-02 00:00:00 2017-11-02 00:00:00 [facility] Tobacco use and exposure 2017-11-02 00:00:00 2017-11-02 00:00:00 Never used [facility] Alcohol intake 2017-11-02 00:00:00 2017-11-02 00:00:00 Current drinker of alcohol (finding) [facility] Alcohol Comment 2017-11-02 00:00:00 2017-11-02 00:00:00 social drinker [facility] Cigarettes smoked current (pack per day) - Reported 2017-11-02 00:00:00 2017-11-02 00:00:00 [facility] Sex Assigned At 1985 00:00:00 1985 00:00:00 [facility] Smoking Status Start Date Stop Date Source Current every day smoker 2017-11-02 00:00:00 [facility] Medications Ordered Medication Name Filled Medication Name Start Date Stop Date Current Medication? Ordering Clinician Indication Dosage Frequency Signature (SIG) Comments Components Source dexamethaso ne (DECADRON PHOSPHATE) injection 10 mg 2020-03 20:45: 00 01-17 19:55 :00 No [id number] 10mg [facility] dexamethaso ne (DECADRON PHOSPHATE) injection 10 mg 2020-03 20:45: 00 01-17 19:55 :00 No [id number] 10mg 10 mg, Intramuscu lar, ONCE, 1 dose, On Sat01/17/21 at 1545, Routine [facility] ALBUTEROL INHALE 2020-03 00:00: 00 01-18 04:59 :00 No Inhale. [facility] ALBUTEROL INHALE 2020-03 00:00: 00 01-18 04:59 :00 No Inhale. [facility] ALBUTEROL INHALE 2020-03 00:00: 00 01-18 04:59 :00 No Inhale. [facility] bromphenira mine-pseudo ephedrine-D M (BROMFED DM) 2-30-10 mg/5 mL syrup 2020-03 00:00: 00 01-28 04:59 :00 No [id number] 5mL Take 5 mL by mouth 4 (four) times daily as needed for Congestion /Allergies or Cough for up to 10 days. [facility] bromphenira mine-pseudo ephedrine-D M (BROMFED DM) 2-30-10 mg/5 mL syrup 2020-03 0-26 00:00: 00 01-28 04:59 :00 No [id number] 5mL Take 5 mL by mouth 4 (four) times daily as needed for Congestion /Allergies or Cough for up to 10 days. [facility] bromphenira mine-pseudo ephedrine-D M (BROMFED DM) 2-30-10 mg/5 mL syrup 2020-03 0 00:00: 00 01-28 04:59 :00 No [id number] 5mL Take 5 mL by mouth 4 (four) times daily as needed for Congestion /Allergies or Cough for up to 10 days. [facility] codeine-gua ifenesin 10-100 mg/5 mL oral solution 2020-03 0 00:00: 00 01-25 04:59 :00 No 5mL Take 5 mL by mouth at bedtime as needed for Cough for up to 7 days. Indication s: cough [facility] codeine-gua ifenesin 10-100 mg/5 mL oral solution 2020-03 0 00:00: 00 01-25 04:59 :00 No 5mL Take 5 mL by mouth at bedtime as needed for Cough for up to 7 days. Indication s: cough [facility] codeine-gua ifenesin 10-100 mg/5 mL oral solution 2020-03 0 00:00: 00 01-25 04:59 :00 No 5mL Take 5 mL by mouth at bedtime as needed for Cough for up to 7 days. Indication s: cough [facility] acetaminoph en-codeine 300-30 mg tablet 11-02 00:00: 00 Yes [id number] 1/2 - 1 tab Every 4hrs as needed for pain or cough requiring narcotic [facility] acetaminoph en-codeine 300-30 mg tablet 11-02 00:00: 00 Yes [id number] 1/2 - 1 tab Every 4hrs as needed for pain or cough requiring narcotic [facility] acetaminoph en-codeine 300-30 mg tablet 11-02 00:00: 00 Yes [id number] 1/2 - 1 tab Every 4hrs as needed for pain or cough requiring narcotic [facility] acetaminoph en-codeine 300-30 mg tablet 11-02 00:00: 00 Yes [id number] 1/2 - 1 tab Every 4hrs as needed for pain or cough requiring narcotic [facility] SYMBICORT 160-4.5 mcg/actuati on inhaler 07-21 00:00: 00 Yes [facility] SYMBICORT 160-4.5 mcg/actuati on inhaler 07-21 00:00: 00 Yes [facility] SYMBICORT 160-4.5 mcg/actuati on inhaler 07-21 00:00: 00 Yes [facility] SYMBICORT 160-4.5 mcg/actuati on inhaler 07-21 00:00: 00 Yes [facility] Vital Signs Vital Name Observation Time Observation Value Comments S ource Systolic blood pressure 2021-01-17 19:14:00 130 mm[Hg] [facility] Diastolic blood pressure 2021-01-17 19:14:00 96 mm[Hg] [facility] Heart rate 2021-01-17 19:11:00 96 /min [facility] Body temperature 2021-01-17 19:11:00 36.67 Jael [facility] Respiratory rate 2021-01-17 19:11:00 16 /min [facility] Body height 2021-01-17 19:11:00 172.7 cm [facility] Body weight 2021-01-17 19:11:00 101.209 kg [facility] BMI 2021-01-17 19:11:00 33.93 kg/m2 [facility] Oxygen saturation in Arterial blood by Pulse oximetry 2021-01-17 19:11:00 97 /min [facility] Procedures Procedure Date / Time Performed Performing Clinicia n Source XR CHEST 2 VW 2021-01-17 20:02:34 [facility]AG[facility]IS AND TREATMENT 2021-01-17 18:51:35 Doctor Unassigned, [place] [facility] ASSIGNMENT OF BENEFITS 2021-01-17 18:51:23 Docto r Unassigned, [place] [facility] Encounters Start Date/Time End Date/Time Encounter Type Admission Type Attending Clinicians Care Facility Care Department Encounter ID Source 2021-01-17 14:40:30 2021-01-17 23:59:00 Hospital Encounter Ivan Phelps [facility] 1..[id number] [facility] 2021-01-17 13:58:03 2021-01-17 15:06:49 Urgent Care Provider, [facility] Unknown, Attending Lacie Marquis [facility] 1..[id number] [facility] 2021-01-17 14:20:00 2021-01-17 14:20:00 Outpatient R [facility] [id number] [facility] 2021-01-17 14:20:00 2021-01-17 14:20:00 Outpatient R UNKNOWN, ATTENDING [facility] [id number] [facility] 2021-01-17 00:00:00 2021-01-17 00:00:00 Orders Only Doctor Unassigned, [place] [facility] 1..[id number] [facility] 2021-01-17 00:00:2021-01-17 00:00:00 Telephone Gwen Kimberli [facility] Ileana Saavedra?[facility] [id number] [facility] 2019-08-21 09:30:00 2019-08-21 09:30:00 Outpatient DANA HERNANDEZ [facility] [id number] [facility] 2019-08-21 09:30:00 2019-08-21 09:30:00 Outpatient DANA HERNANDEZ [facility] [id number] [facility]
[2023-03-14 16:12] LABS: Specific Gravity < 1.005 (1.005-1.030); Urine Bilirubin NEGATIVE (Negative); Urine Blood Negative (Negative); Urine Clarity Clear (Clear); Urine Color Colorless (Yellow); Urine Glucose NEGATIVE (Negative); Urine Protein NEGATIVE (Negative); Urine Urobilinogen Normal (Normal)
[2023-03-14 16:17] LABS: Specific Gravity < 1.005 (1.005-1.030)
[2023-03-14 16:41] LABS: Absolute Lymphocytes (CBC) 2.6 K/uL (0.7-4.9); Hematocrit 44.3 % (36.0-45.0); Lymphocytes % 26.6 % (15.3-44.8); MCV 83.3 fL (80-100); MPV 7.2 fL (7.6-11.3); Platelets 402 thou/uL (152-406); RBC Red Blood Cell Count 5.32 M/uL (3.86-4.86)
[2023-03-14 17:03] LABS: Albumin 3.5 g/dL (3.4-5.0); Bilirubin Total 0.4 mg/dL (0.2-1.0); Potassium 3.6 mEq/L (3.5-5.1); Protein, Total 7.5 g/dL (6.4-8.2)
--- NOTE | 2023-03-14 18:16 | RAD REPORT ---
EXAM DESCRIPTION: CT - Abdomen Pelvis W Contrast - 03/14/2023 5:53 pm CLINICAL HISTORY: Abd pain;Constipation COMPARISON: No comparisons TECHNIQUE: Thin cut axial CT imaging of the abdomen and pelvis was performed following intravenous a dministration of 100 mL Isovue 300. Multiplanar reformats were generated and reviewed. All CT scans are performed using dose optimization technique as appropriate and may include automated exposure control or mA/KV adjustment according to patient size. FINDINGS: No suspicious findings in the lung bases. The liver, spleen, adrenal glands, and pancreas show no suspicious findings. Gallbladder and biliary tree are also without suspicious finding. Symmetric renal function is seen with no hydronephrosis or suspicious renal mass. No dilated bowel loops or bowel wall thickening. Small bowel intussusception in the left flank, witho ut evidence of obstruction. No free air, free fluid or inflammatory stranding. No hernia, mass or bul ky lymphadenopathy. Right ovarian cyst or follicle, measuring 2.9 x 2.5 cm. The urinary bladder is wi thout significant finding. No suspicious bony findings. IMPRESSION: No acute intra-abdominal process. Small bowel intussusception in the left flank, without evidence of obstruction. This is favored to be transient and of low clinical significance.
--- NOTE | 2023-03-14 18:52 | EDPHYS ---
Physician Documentation [facility] Name: Libra Baptiste Age: 37 yrs Sex: Female : 1985 Arrival Date: 03/14/2023 Time: 15:23 Bed 18 Private MD: ED Physician Deangelo Bhagat HPI: 03/14 16:00 This 37 yrs old Female presents to ER via Ambulatory with complaints of Constipation. sb4 16:00 The patient presents with abdominal pain in the right upper quadrant. Onset: The sb4 symptoms/episode began/occurred 1 week(s) ago. The symptoms do not radiate. Associated signs and symptoms: Pertinent positives: constipation, nausea. The patient has not experienced similar symptoms in the past. The patient has not recently seen a physician. patients states she has not had a full BM in "weeks" despite several laxatives, enemas, and OTC remedies. she is taking monjaro. Historical: - Allergies: 15:36 No Known Allergies; ap3 - PMHx: 15:36 Asthma; ap3 - PSHx: 15:36 Appendectomy; ; ; tubal ligation; ap3 - Social history:: Smoking status: Patient reports the use of cigarette tobacco products, smokes one pack cigarettes per day. ROS: 16:00 Constitutional: Negative for fever, chills, and weight loss, sb4 16:00 Abdomen/GI: Positive for abdominal pain, vomiting, constipation, 16:00 All other systems are negative, Exam: 16:00 Constitutional: This is a well developed, well nourished patient who is awake, alert, sb4 and in no acute distress. Head/Face: Normocephalic, atraumatic. Eyes: Extra-ocular motions intact. Periorbital areas with no swelling, redness, or edema. ENT: Mucous membranes moist. Cardiovascular: Regular rate and rhythm with a normal S1 and S2. Respiratory: Lungs have equal breath sounds bilaterally, clear to auscultation and percussion. No rales, rhonchi or wheezes noted. No increased work of breathing, no retractions or nasal flaring. Abdomen/GI: Soft, non-tender, no distension. Skin: Warm, dry with normal turgor. Normal color with no rashes, no lesions, and no evidence of cellulitis. MS/ Extremity: Pulses equal, no cyanosis. Neurovascular intact. Full, normal range of motion. Neuro: Awake and alert, GCS 15, oriented to person, place, time, and situation. Motor strength 5/5 in all extremities. Sensory grossly intact. Vital Signs: 15:35 Pulse 105; Resp 18; Temp 98.8; Pulse Ox 99% ; Weight 88.45 kg; Height 5 ft. 8 in. ; ap3 Pain 7/10; 15:38 BP 123 / 90; ap3 19:20 BP 127 / 85; Pulse 93; Resp 16; Pulse Ox 100% ; bp 15:35 Body Mass Index 29.65 (88.45 kg, 172.72 cm) ap3 15:35 Pain Scale: Adult ap3 MDM: 15:41 Patient medically screened. sb4 16:00 Differential diagnosis: bowel obstruction, cholecystitis, Cholelithiasis, non-specific sb4 abd pain, pancreatitis, constipation, ileus, fecal impaction, stercoral colitis. 18:50 Data reviewed: vital signs, nurses notes, lab test result(s), radiologic studies, and sb4 as a result, I will discharge patient. Counseling: I had a detailed discussion with the patient and/or guardian regarding the historical points, exam findings, and any diagnostic results supporting the discharge/admit diagnosis, lab results, radiology results, to return to the emergency department if symptoms worsen or persist or if there are any questions or concerns that arise at home. 03/14 15:41 Order name: CBC with Diff; Complete Time: 16:42 sb4 03/14 15:41 Order name: CMP; Complete Time: 17:05 sb4 03/14 15:41 Order name: Lipase; Complete Time: 17:05 sb4 03/14 15:41 Order name: Test, Urine; Complete Time: 16:22 sb4 03/14 15:41 Order name: Urinalysis w/ reflexes; Complete Time: 16:15 sb4 03/14 15:41 Order name: CT Abd/Pelvis - PO and IV Contrast; Complete Time: 18:19 sb4 03/14 15:41 Order name: IV Saline Lock; Complete Time: 16:54 sb4 03/14 15:41 Order name: Labs collected and sent; Complete Time: 16:54 sb4 Administered Medications: 16:30 Drug: NS 0.9% IV 1000 ml IV at 1 bolus Per protocol; 1000 mL bolus Route: IV; Rate: 1 bp bolus; Site: right forearm; 16:54 Not Given (Patient Refused): ondansetron 4 mg IVP once; over 2 minutes bp 18:59 Not Given (UNAVAILABLEe): [id number] mg PO once bp 19:00 Drug: Lactulose PO 30 grams 45 ml PO once Volume: 45 ml; Route: PO; bp 19:00 Follow up: Response: No adverse reaction bp Disposition: 19:22 Co-signature as Attending Physician, Deangelo Bhagat MD I reviewed the patient's care rt provided by the Advanced Practice Provider and agree with the diagnosis and treatment plan. Disposition Summary: 03/14/23 18:51 Discharge Ordered Notes: Location: Home sb4 Problem: an ongoing problem sb4 Symptoms: are unchanged sb4 Condition: Stable sb4 Diagnosis - Constipation sb4 Followup: sb4 - With: Emergency Department - When: As needed - Reason: Trouble breathing, Worsening of condition Discharge Instructions: - Discharge Summary Sheet sb4 - Constipation, Adult, Sifr-dy-Arsk sb4 Forms: - Medication Reconciliation Form sb4 - Thank You Letter sb4 - Antibiotic Education sb4 - Prescription Opioid Use sb4 - Patient Portal Instructions sb4 - Leadership Thank You Letter sb4 Prescriptions: - Golytely [id number] -5.86 gram Oral Recon Soln - take 20 milliliter ORAL route every 10 minutes until fecal effluent is clear; sb4 400 milliliter; Refills: 0, Product Selection Permitted Signatures: Dispatcher [employer] David Latham, RN Lacie Srivastava RN RN ap3 Denice Brown PA-C PARicky sb4 Deangelo Bhagat MD MD rt Corrections: (The following items were deleted from the chart) 15:37 15:36 Allergies: Amoxicillin; ap3 ap3
--- NOTE | 2023-03-14 18:52 | ER ---
Nurse's Notes [facility] Name: Libra Baptiste Age: 37 yrs Sex: Female : 1985 Arrival Date: 03/14/2023 Time: 15:23 Bed 18 Private MD: Diagnosis: Constipation Presentation: 03/14 15:35 Chief complaint: Patient states: she hasn't had a bowel movement "since i dont know ap3 when". patient states she's on an "off brand mounjaro shot and high protein diet". Coronavirus screen: At this time, the client does not indicate any symptoms associated with coronavirus-19. Ebola Screen: No symptoms or risks identified at this time. Initial Sepsis Screen: Does the patient meet any 2 criteria? HR > 90 bpm. Does the patient have a suspected source of infection? Yes: Acute abdominal pain. Risk Assessment: Do you want to hurt yourself or someone else? Patient reports no desire to harm self or others. Onset of symptoms is unknown. 15:35 Method Of Arrival: Ambulatory ap3 15:35 Acuity: SHIV 3 ap3 Triage Assessment: 15:37 General: Appears in no apparent distress. Behavior is calm, cooperative, appropriate ap3 for age. Pain: Complains of pain in abdomen. Neuro: Level of Consciousness is awake, alert, obeys commands, Oriented to person, place, time, situation, Appropriate for age. Cardiovascular: Patient's skin is warm and dry. Respiratory: Airway is patent Respiratory effort is even, unlabored, Respiratory pattern is regular, symmetrical. GI: Reports constipation. Historical: - Allergies: 15:36 No Known Allergies; ap3 - PMHx: 15:36 Asthma; ap3 - PSHx: 15:36 Appendectomy; ; ; tubal ligation; ap3 - Social history:: Smoking status: Patient reports the use of cigarette tobacco products, smokes one pack cigarettes per day. Screenin:38 [facility] ED Fall Risk Assessment (Adult) History of falling in the last 3 months, ap3 including since admission No falls in past 3 months (0 pts). Abuse screen: Denies threats or abuse. Nutritional screening: No deficits noted. Tuberculosis screening: No symptoms or risk factors identified. Assessment: 16:16 Reassessment: No changes from previously documented assessment. Patient and/or family iw updated on plan of care and expected duration. Pain level reassessed. Vital Signs: 15:35 Pulse 105; Resp 18; Temp 98.8; Pulse Ox 99% ; Weight 88.45 kg; Height 5 ft. 8 in. ; ap3 Pain 7/10; 15:38 BP 123 / 90; ap3 19:20 BP 127 / 85; Pulse 93; Resp 16; Pulse Ox 100% ; bp 15:35 Body Mass Index 29.65 (88.45 kg, 172.72 cm) ap3 15:35 Pain Scale: Adult ap3 ED Course: 15:26 Patient arrived in ED. ra3 15:29 Denice Brown PA-C is PHCP. sb4 15:29 Deangelo Bhagat MD is Attending Physician. sb4 15:36 Triage completed. ap3 15:38 Arm band placed on right wrist. ap3 15:58 Test, Urine Sent. ap3 15:58 Urinalysis w/ reflexes Sent. ap3 16:15 Inserted saline lock: 20 gauge in right forearm, using aseptic technique. Blood bp collected. 16:16 Patient placed in an exam room, on a stretcher. iw 16:21 David Briceno, RN is Primary Nurse. bp 17:55 CT Abd/Pelvis - PO and IV Contrast In Process Unspecified. EDMS 19:20 Patient has correct armband on for positive identification. bp 19:20 No provider procedures requiring assistance completed. IV discontinued, intact, bp bleeding controlled, No redness/swelling at site. Pressure dressing applied. Administered Medications: 16:30 Drug: NS 0.9% IV 1000 ml IV at 1 bolus Per protocol; 1000 mL bolus Route: IV; Rate: 1 bp bolus; Site: right forearm; 16:54 Not Given (Patient Refused): ondansetron 4 mg IVP once; over 2 minutes bp 18:59 Not Given (UNAVAILABLEe): [id number] mg PO once bp 19:00 Drug: Lactulose PO 30 grams 45 ml PO once Volume: 45 ml; Route: PO; bp 19:00 Follow up: Response: No adverse reaction bp Medication: 19:20 VIS not applicable for this client. bp Outcome: 18:51 Discharge ordered by . sb4 19:20 Discharged to home ambulatory, with family, bp 19:20 Condition: stable 19:20 Discharge instructions given to patient, Instructed on discharge instructions, follow up and referral plans. medication usage, Demonstrated understanding of instructions, follow-up care, medications, Prescriptions given X 1, 19:22 Patient left the ED. bp Signatures: Dispatcher [employer] EDTonya Jeffers RN David Moy RN RN Lacie Michael RN RN ap3 Denice Brown, PARicky PARicky christina4 Corazon Winslow ra3 Corrections: (The following items were deleted from the chart) 15:37 15:36 Allergies: Amoxicillin; ap3 ap3
[2023-03-14 22:17] VITALS: TEMP 98.8
[2023-03-14 22:29] VITALS: BP 127/85; O2SAT 100
== END ==
LOC: ER 15:23
DX: K59.00 Constipation, unspecified (principal); F17.210 Nicotine dependence, cigarettes, uncomplicated
CPT/HCPCS: 85025; 36415; 81025; 81003; 83690; 80053; 74177; 99284; Q9967; J7030

== ENCOUNTER 2024-12-21 19:50 | Emergency (ER) | payer BC ==
--- OUTSIDE RECORDS SUMMARY | 2024-12-21 19:54 | XMS REPORT | Continuity of Care Document ---
Author Name Unknown Address [address] [facility] [address] [place] [address] [facility] Address [address] [facility]. 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 Name Role Phone GEOFFREY LORA Primary Care Physician Unav ailALO Miller Attending Clinician ALO Fontenot Attending Clinician Unavailherrera solares Doctor Unassigned, [place] Attending Clinician U emelyailBLANCA Diaz Attending Clinician BLANCA Cervantes Attending Clinician Blanca Cervantes MD Attending Clinician + [phone], [facility] Attending Clinician Unavailable MARTHA ARCE Attending Clinician Unavailable Martha Lara Attending Clinician [phone] Unknown, Attending Attending Clinician Unavailab CHARLEY Pollack Attending Clinician Unavailable Melissa Amador MD Attending Clinician [phone] MELISSA AMADOR Attending Clinician Unavailable SALVADOR BARNETT Attending Clinician Unavailable Ivan Hussein Attending Clinician [phone] Provider, [facility] Attending Clinician Unavailable Unknown, Attending Attending Clinician Unavailab Filipe AVINA, Lacie Attending Clinician UNKNOWN, ATTENDING Attending Clinician Unavailab smith Doctor Unassigned, [place] Attending Clinician U aleja Hidalgo MD, Kimberli Attending Clinician DANA ALATORRE Attending Clinician Unavailable BLANCA CHOE Admitting Clinician MELISSA Linares Admitting Clinician Unavailable Payers Payer Name Policy Type Policy Number Effective Date Expirati on Date Source [place] OUT OF [place] [id number] 2021 00:00:00 Problems Condition Name Condition Details Condition Category Status Onset Date Resolution Date Last Treatment Date Treating Clinician Comments Source Vitamin D deficiency Vitamin D deficiency Disease Active 10-02 00:00: 00 [facility] Multiple thyroid nodules Multiple thyroid nodules Disease Active 11-16 00:00: 00 [facility] Prediabete s Prediabete s Disease Active 11-16 00:00: 00 [facility] Irregular menstrual cycle Irregular menstrual cycle Disease Active 11-16 00:00: 00 [facility] Galactorrh ea Galactorrh ea Disease Active 11-16 00:00: 00 [facility] HLD (hyperlipi demia) HLD (hyperlipi demia) Disease Active 11-16 00:00: 00 [facility] Hirsutism Hirsutism Disease Active 08-18 00:00: 00 [facility] PCOS (polycysti c ovarian syndrome) PCOS (polycysti c ovarian syndrome) Disease Active 08-18 00:00: 00 [facility] Status post delivery Status post delivery Disease Active 11-24 00:00: 00 Overview: Formattin g of this note might be different from the original. ICD10 Diagnosis Term [employer] Utility [facility] Asthma Asthma Disease Active 11-17 00:00: 00 [facility] Thyroid nodule Thyroid nodule Disease Resolve d 08-18 00:00: 00 2014-11-16 00:00:00 2014-11-16 13:28:42 [facility] Allergies, Adverse Reactions, Alerts Allergy Name Allergy Type Status Severity Reaction(s) Onset Date Inactive Date Treating Clinician Comments Source Penicill in Propensi ty to adverse reaction s Active Unknown - See comments 11-02 00:00: 00 Yeast infection s [facility] PENICILL IN DRUG INGREDI Active Unknown-Cmnt 11-02 00:00: 00 [facility] Latex Propensi ty to adverse reaction s Active Rash 2014-03 00:00: 00 [facility] LATEX DRUG INGREDI Active Rash 2014-03 00:00: 00 [facility] Cabergol ine Propensi ty to adverse reaction s Active Hallucinatio ns 08-17 00:00: 00 [facility] CABERGOL INE DRUG INGREDI Active Hallucinates 08-17 00:00: 00 [facility] Social History Social Habit Start Date Stop Date Quantity Comments Source Sexual orientation U [facility] History SDOH Alcohol Frequency [facility] History SDOH Alcohol Std Drinks [facility] History SDOH Alcohol Binge [facility] ASSERTION Not [facility] Exposure to SARS-CoV-2 (event) Not sure [facility] History of tobacco use Cigarette Smoker [facility] History of Social function 2024-06-02 00:00:00 2024-06-02 00:00:00 [facility] Alcoholic beverage intake 2024-06-02 00:00:00 2024-06-02 00:00:00 Current drinker of alcohol (finding) [facility] Cigarette pack-years 2024-02-04 00:00:00 2024-02-04 00:00:00 [facility] Tobacco use and exposure 2024-02-04 00:00:00 2024-02-04 00:00:00 Smokeless tobacco non-user [facility] Cigarettes smoked current (pack per day) - Reported 2024-02-04 00:00:00 2024-02-04 00:00:00 [facility] Alcohol intake 2023-06-07 00:00:00 2023-06-07 00:00:00 Current drinker of alcohol (finding) [facility] Alcohol Comment 2017-11-02 00:00:00 2017-11-02 00:00:00 social drinker [facility] Sex assigned at 1985 00:00:00 1985 00:00:00 [facility] Smoking Status Start Date Stop Date Source Smokes tobacco daily 2024-02-04 00:00:00 [facility] Medications Ordered Medication Name Filled Medication Name Start Date Stop Date Current Medication? Ordering Clinician Indication Dosage Frequency Signature (SIG) Comments Components Source tranexamic acid 650 mg tablet 05-11 00:00: 00 Yes [id number] 650mg Take 1 tablet by mouth in the morning and 1 tablet at noon and 1 tablet in the evening. [facility] ibuprofen 800 mg tablet 05-11 00:00: 00 Yes [id number] 800mg Take 1 tablet by mouth every 6 (six) hours as needed for Pain (scale 4-6). [facility] azithromyci n 250 mg tablet 2023-03 00:00: 00 05-11 00:00 :00 No [id number] Z pack as directed. [facility] codeine-gua ifenesin 10-100 mg/5 mL oral solution 2023-03 00:00: 00 02-09 05:59 :00 No 5mL Take 5 mL by mouth every 6 (six) hours as needed for Cough for up to 5 days. Indication s: cough [facility] iopamidol (ISOVUE 370-500 mL) injection 80 mL 06-10 23:15: 00 06-10 22:22 :00 No [id number] 80mL 80 mL, Intravenou s, ONCE, 1 dose, On Sat06/11/23 at 1815, Routine [facility] tirzepatide (MOUNJARO) 2.5 mg/0.5 mL subcutaneou s injection 2022-03 00:00: 00 Yes 2.5mg inject 2.5 mg under the skin weekly. [facility] dexamethaso ne (DECADRON PHOSPHATE) injection 10 mg 2020-03 20:45: 00 01-17 19:55 :00 No [id number] 10mg [facility] ALBUTEROL INHALE 2020-03 00:00: 00 01-18 04:59 :00 No Inhale. [facility] bromphenira mine-pseudo ephedrine-D M (BROMFED DM) 2-30-10 mg/5 mL syrup 2020-03 00:00: 00 01-28 04:59 :00 No [id number] 5mL Take 5 mL by mouth 4 (four) times daily as needed for Congestion /Allergies or Cough for up to 10 days. [facility] codeine-gua ifenesin 10-100 mg/5 mL oral solution 2020-03 00:00: 00 01-25 04:59 :00 No 5mL Take 5 mL by mouth at bedtime as needed for Cough for up to 7 days. Indication s: cough [facility] acetaminoph en-codeine 300-30 mg tablet 11-02 00:00: 00 05-11 00:00 :00 No [id number] 1/2 - 1 tab Every 4hrs as needed for pain or cough requiring narcotic [facility] SYMBICORT 160-4.5 mcg/actuati on inhaler 07-21 00:00: 00 Yes [facility] Immunizations Ordered Immunization Name Filled Immunization Name Date Status Comments Source Pneumococcal 7 Conjugate, PCV7 (Prevnar7) 2009-03-25 00:00:00 Completed Pneumococcal 7 Conjugate, PCV7 (Prevnar7) 2009-03-25 00:00:00 [facility] Pneumococcal 7 Conjugate, PCV7 (Prevnar7) 2009-03-25 00:00:00 [facility]pleted [facility] Pneumococcal 7 Conjugate, PCV7 (Prevnar7) 2009-03-25 00:00:00 [facility]pleted [facility] Pneumococcal 7 Conjugate, PCV7 (Prevnar7) 2009-03-25 00:00:00 [facility]pleted [facility] Influenza Virus Vaccine - Whole 2009-02-22 00:00:00 [facility]pleted [facility] Influenza Virus Vaccine - Whole 2009-02-22 00:00:00 [facility]pleted [facility] Influenza Virus Vaccine - Whole 2009-02-22 00:00:00 [facility]pleted [facility] Influenza Virus Vaccine - Whole 2009-02-22 00:00:00 [facility]pleted [facility] Influenza Virus Vaccine - Whole 2009-02-22 00:00:00 Completed [facility] Influenza Virus Vaccine - Whole Unknown Completed [facility] Pneumococcal 7 Conjugate, PCV7 (Prevnar7) Unknown Completed [facility] Influenza Virus Vaccine - Whole Unknown Completed [facility] Pneumococcal 7 Conjugate, PCV7 (Prevnar7) Unknown Completed [facility] Influenza Virus Vaccine - Whole Unknown Completed [facility] Pneumococcal 7 Conjugate, PCV7 (Prevnar7) Unknown Completed [facility] Vital Signs Vital Name Observation Time Observation Value Comments S ource Systolic blood pressure 2024-05-11 21:08:00 122 mm[Hg] [facility] Diastolic blood pressure 2024-05-11 21:08:00 80 mm[Hg] [facility] Heart rate 2024-05-11 21:06:00 86 /min [facility] Body temperature 2024-05-11 21:06:00 36.94 [facility] Body height 2024-05-11 21:06:00 172.7 cm [facility] Body weight 2024-05-11 21:06:00 80.967 kg [facility] BMI 2024-05-11 21:06:00 27.14 kg/m2 [facility] Systolic blood pressure 2024-02-04 18:52:00 127 mm[Hg] [facility] Diastolic blood pressure 2024-02-04 18:52:00 93 mm[Hg] [facility] Heart rate 2024-02-04 18:33:00 87 /min [facility] Body temperature 2024-02-04 18:33:00 36.28 [facility] Respiratory rate 2024-02-04 18:33:00 18 /min [facility] Body weight 2024-02-04 18:33:00 79.788 kg [facility] BMI 2024-02-04 18:33:00 26.75 kg/m2 [facility] Oxygen saturation in Arterial blood by Pulse oximetry 2024-02-04 18:33:00 100 /min [facility] Systolic blood pressure 2023-06-07 18:13:00 124 mm[Hg] [facility] Diastolic blood pressure 2023-06-07 18:13:00 81 mm[Hg] [facility] Heart rate 2023-06-07 18:05:00 94 /min [facility] Body height 2023-06-07 18:05:00 172.7 cm [facility] Body weight 2023-06-07 18:05:00 84.46 kg [facility] BMI 2023-06-07 18:05:00 28.31 kg/m2 [facility] Oxygen saturation in Arterial blood by Pulse oximetry 2023-06-07 18:05:00 99 /min [facility] Systolic blood pressure 2021-01-17 19:14:00 130 mm[Hg] [facility] Diastolic blood pressure 2021-01-17 19:14:00 96 mm[Hg] [facility] Heart rate 2021-01-17 19:11:00 96 /min [facility] Body temperature 2021-01-17 19:11:00 36.67 [facility] Respiratory rate 2021-01-17 19:11:00 16 /min [facility] Body height 2021-01-17 19:11:00 172.7 cm [facility] Body weight 2021-01-17 19:11:00 101.209 kg [facility] BMI 2021-01-17 19:11:00 33.93 kg/m2 [facility] Oxygen saturation in Arterial blood by Pulse oximetry 2021-01-17 19:11:00 97 /min [facility] Procedures Procedure Date / Time Performed Performing Clinician Source US PELVIS COMPLETE WITH TRANSVAGINAL 2024-05-20 21:23:05 Blanca [facility] POCT SARS-COV-2 ANTIGEN (BINAX NOW) 2024-02-04 19:03:00 Lacie Marquis [facility] POCT MOLECULAR FLU 2024-02-04 18:53:00 Unknown, Attend ing [facility] HB CREATININE SERUM/BLOOD FOR IMAGING 2023-06-11 21:43:00 Melissa Amador [facility] XR CHEST 2 VW 2021-01-17 20:02:34 [facility] TREATMENT 2021-01-17 18:51:35 Doctor Unassigned, [place] [facility] ASSIGNMENT OF BENEFITS 2021-01-17 18:51:23 Docto r Unassigned, [place] [facility] Encounters Start Date/Time End Date/Time Encounter Type Admission Type Attending Clinicians Care Facility Care Department Encounter ID Source [id number] 00:00:00 2024-07-11 18:15:54 Patient Secure Msg Doctor Unassigned, [place] Doctor Unassigned, [place] [facility] 1..840.114 350.1.13.10 4.2.7.2.686 [id number] [facility] 2024-05-13 00:00:00 2024-06-13 18:15:43 Patient Secure Msg Doctor Unassigned, [place] Doctor Unassigned, [place] [facility] 1.2.840.114 350.1.13.10 4.2.7.2.686 [id number] [facility] 2024-06-02 09:00:00 2024-06-02 11:03:28 Outpatient BLANCA MELGOZA [facility] [id number] [facility] 2024-05-20 14:48:36 2024-05-20 23:59:00 Outpatient ANGELA MELGOZAL LENNY-JACY S, [facility] [id number] [facility] 2024-05-20 14:48:36 2024-05-20 23:59:00 Hospital Encounter Ranulfo Wangsol [facility] 1.2.840.114 350.1.13.10 4.2.7.2.686 [id number] [facility] 2024-05-11 16:15:00 2024-05-11 16:30:00 Forensic Medical Examiner Visit 2, [facility] Angela Wangl 2, [facility] 1.2.840.114 350.1.13.10 4.2.7.2.686 [id number] [facility] 2024-05-11 15:00:00 2024-05-11 15:40:09 Outpatient R YUNI Cronin, [facility] [id number] [facility] 2024-05-11 15:00:00 2024-05-11 15:40:09 Office Visit Blanca Wang [facility] 1.2.840.114 350.1.13.10 4.2.7.2.686 [id number] [facility] 2024-02-04 12:00:00 2024-02-04 13:45:48 Outpatient R MARTHA [facility] [id number] [facility] 2024-02-04 12:00:00 2024-02-04 12:20:00 Urgent Care Martha Arce Unknown, Attending [facility] 1.2.840.114 350.1.13.10 4.2.7.2.686 [id number] [facility] 2023-07-16 14:00:00 2023-07-16 14:00:00 Outpatient CHARLEY GALLO [facility] [id number] [facility] 2023-06-12 00:00:00 2023-06-12 00:00:00 Patient Secure Melissa Oliva [facility] 1..114 350.1.13.10 4.2.7.2.686 [id number] [facility] 2023-06-11 15:47:51 2023-06-11 23:59:00 Outpatient Taina PERRYMELISSA NAGY [facility] [id number] [facility] 2023-06-11 15:47:51 2023-06-11 23:59:00 Hospital Encounter Melissa Amador [facility] 1.114 350.1.13.10 4.2.7.2.686 [id number] [facility] 2023-06-11 08:45:00 2023-06-11 08:45:00 Outpatient SALVADOR BARNETT [facility] [id number] [facility] 2023-06-07 13:15:00 2023-06-07 13:43:55 Outpatient MELISSA MULLENChalo [facility] [id number] [facility] 2023-06-07 13:15:00 2023-06-07 13:43:55 Office Visit PerryGeorgier [facility] 1..114 350.1.13.10 4.2.7.2.686 [id number] [facility] 2021-01-17 14:40:30 2021-01-17 23:59:00 Hospital Encounter Mattie Jennifercathyravinderchalo [facility]?Izaiah [facility] 1..114 350.1.13.10 4.2.7.2.686 [id number] [facility] 2021-01-17 13:58:03 2021-01-17 15:06:49 Urgent Care Provider, Gokul Garcia [facility] Unknown, Attending Lacie Marquis [facility]?Izaiah [facility] 1.2.840.114 350.1.13.10 4.2.7.2.686 [id number] [facility] 2021-01-17 14:20:00 2021-01-17 14:20:00 Outpatient R [facility] [id number] [facility] 2021-01-17 14:20:00 2021-01-17 14:20:00 Outpatient R UNKNOWN, [facility]ENDING [facility] [id number] [facility] 2021-01-17 00:00:00 2021-01-17 00:00:00 Orders Only Doctor Unassigned, [place] [facility] 1.2.840.114 350.1.13.10 4.2.7.2.686 [id number] [facility] 2021-01-17 00:00:00 2021-01-17 00:00:00 Telephone Kimberli Hidalgo [facility]?Izaiah antione [facility] 1.2.840.114 350.1.13.10 4.2.7.2.686 [id number] [facility] 2019-08-21 09:30:00 2019-08-21 09:30:00 Outpatient R DANA ALATORRE [facility] [id number] [facility] 2019-08-21 09:30:00 2019-08-21 09:30:00 Outpatient R [facility] [id number] [facility] Results Test Description Test Time Test Comments Results Result Comments Source US Pelvis complete with transvaginal 2024-04-26 6 21:29:02 HISTORY: AUB/dysmenorrhea. TECHNIQUE: Both transabdominal and transvaginal pelvic ultrasound studieswere completed by the technologist. FINDINGS: Uterus is of normal size and shape, measures approximately 8.6 x4.4 x 5.4 cm in size with homogeneous echo texture of the myometrium.Endometria l echo complex is 10-11 mm. Right ovary is 2.8 x 2.7 x 2.4 cm ( 13.23 ml) and left ovary is 3.3 x 2.2 x1.4 cm ( 5.17 ml). Multiple follicles are present in both ovaries, largestis 2.2 cm size in the right ovary with a small amount of free fluid notedadjacent to the right ovary. CONCLUSIONS: 1. Normal size uterus with no focal myometrial lesions seen.2. Thickened endometrial stripe noted, likely physiologic.3. Small cysts in the ovaries, with dominant 2.2 cm cyst in the rightovary, small amount of fluid surrounding the right ovary, likelyphysiologic changes. [facility] SARS-COV-2 ANTIGEN (BINAX NOW)2024-02-04 19:03:00* Test Item Value Reference Range Interpretation Comme [facility] POCT SARS-COV-2 ANTIGEN (test code = 98464-0) Not Detected Not Detected, See Comment On board controls acceptable with C Line (test code = 3574) Yes Lab Interpretation (test code = 10930-1) Normal [facility] [id number] 23:30:27* Test Item Value Reference Range Interpretation Comme [facility] POCT Creatinine (test code = 1772599595) 0.6 mg/dL 0.5-1.1 Lab Interpretation (test cod e = 54594-0) [facility] Notes Date/Time Note Provider Source 2024-05-11 16:15:00 Images from the original note were not included. Venipuncture collection performed by clean technique on the right anticubitus. Total of 1 attempts were made. Slight pressure and a bandage/dressing were applied to the site(s). The patient experienced no complications. The following specimens were processed according to instructions and sent to [facility] laboratories per lab order on 05/11/2024: LT BLUE SST 3 RED LAV 1 PPT DK GREEN (LiHep) DK GREEN (SodH) SAAVEDRA DK BLUE (K2) DK BLUE (S) ACD Blood Culture NIPT/NTD TYPER [facility] 2023-06-14 16:21:52 Called patient and discussed the CT neck results. She would like to hold off on surgery for now. Melissa Amador MD Head & Neck Surgical Oncology and Reconstructive Surgery Department of Otolaryngology-Head and Neck Surgery [facility] RULA-OTOLARYNGOLOGY STAFF [facility]
[2024-12-21 20:21] LABS: Sqamous Epithelial None Seen /HPF (None Seen); Urine Culture Reflex Order NOT NEEDED; Urine Microscopic Reflex YN ORDER UMIC
--- NOTE | 2024-12-21 21:32 | RAD REPORT ---
EXAMINATION: Stone Protocol CLINICAL INDICATION: Abdominal pain TECHNIQUE: CT abdomen and pelvis was performed, without IV contrast, as per department protocol. Oral contrast not given. Axial, sagittal and coronal reconstructions were obtained. One or more of the following dose reduction techniques were used: Automated exposure control, adjustment of the mA and k V according to the patient size, and iterative reconstruction. Unless otherwise specified, incidental findings do not require dedicated imaging follow-up. COMPARISON: 2022 FINDINGS: The lack of intravenous and oral contrast limits the sensitivity of this exam for evaluation of solid visceral organs, vascular structures, and bowel A renal calculus not seen. No ureteral calculus. A bladder calculus not noted. No hydronephrosis Liver, spleen, pancreas and adrenals grossly normal No evidence of diverticulitis. Appendectomy. No adnexal mass IMPRESSION: Negative for a genitourinary calculus
--- NOTE | 2024-12-21 21:41 | EDPHYS ---
Physician Documentation [facility] Name: Libra Baptiste Age: 39 yrs Sex: Female : 1985 Arrival Date: 12/21/2024 Time: 19:50 Bed 20 Private MD: ED Physician Emanuel Young HPI: 12/21 22:50 This 39 yrs old Female presents to ER via Ambulatory with complaints of Abdominal Pain, kb Vaginal Bleeding. 22:50 Pt is a 39 year old female who presents for left lower abd pain and blood in urine that kb started a few days ago. States she noticed blood only when she wiped. States the pain is resolved at this time. States she had some clear discharge as well so she thought it could have been a ruptured ovarian cyst. Denies fever, dysuria. States she has had urinary frequency for over a month. 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 - Infectious Disease History:: Denies. - Social history:: Smoking status: Patient reports the use of cigarette tobacco products, smokes one pack cigarettes per day. Patient uses alcohol, occasionally. ROS: 22:49 Constitutional: As per HPI kb Exam: 22:49 Constitutional: This is a well developed, well nourished patient who is awake, alert, kb and in no acute distress. Head/Face: Normocephalic, atraumatic. ENT: Moist Mucous membranes Cardiovascular: Regular rate Respiratory: Respirations even and unlabored. No increased work of breathing. Talking in full sentences Abdomen/GI: Soft, non-tender. No distention Skin: Warm, dry with normal turgor. Normal color. MS/ Extremity: Pulses equal, no cyanosis. Neurovascular intact. Full, normal range of motion. Neuro: Awake and alert, GCS 15, oriented to person, place, time, and situation. Vital Signs: 19:55 BP 172 / 106; Pulse 98; Resp 18; Temp 97.7; Pulse Ox 99% ; kb4 20:00 BP 129 / 99; Pulse 79; Resp 16; Pulse Ox 99% ; me1 21:00 BP 130 / 96; Pulse 87; Resp 15; Pulse Ox 100% ; me1 21:45 BP 133 / 98; Pulse 78; Resp 18; Pulse Ox 99% on R/A; kb4 MDM: 19:55 Medical Screening Exam initiated kb 22:50 Differential diagnosis: non-specific abd pain, Ureterolithiasis, urinary tract kb infection, ovarian cyst. Data reviewed: vital signs, nurses notes. Test considered but Not performed: Labs: cbc, cmp considered but pt has no abd pain or CVA tenderness at this time. Counseling: I had a detailed discussion with the patient and/or guardian regarding the historical points, exam findings, and any diagnostic results supporting the discharge/admit diagnosis, lab results, radiology results, the need for outpatient follow up, a family practitioner, to return to the emergency department if symptoms worsen or persist or if there are any questions or concerns that arise at home. 12/21 19:59 Order name: UA Rfx Carter Cult if indicated; Complete Time: 20:43 kb 12/21 19:59 Order name: Test, Urine; Complete Time: 20:43 kb 12/21 19:59 Order name: CT Stone Protocol; Complete Time: 21:34 kb Administered Medications: No medications were administered Disposition Summary: 12/21/24 21:41 Discharge Ordered Notes: Location: Home kb Condition: Stable kb Diagnosis - Lower abdominal pain, unspecified kb - Urinary frequency kb Followup: kb - With: Emergency Department - When: As needed - Reason: Worsening of condition Followup: kb - With: Private Physician - When: 2 - 3 days - Reason: Recheck today's complaints, Continuance of care, Re-evaluation by your physician Discharge Instructions: - Discharge Summary Sheet kb - Pelvic Pain, Female, [id number] kb - Urinary Frequency, Adult kb Forms: - Medication Reconciliation Form kb - Antibiotic Education kb - Prescription Opioid Use kb - Patient Portal Instructions kb - Leadership Thank You Letter kb Signatures: Dispatcher [employer] [facility] Tala Charles, REZA-Isamar COBB-Maame Stroud RN RN kb4 Corrections: (The following items were deleted from the chart) 20:00 20:00 UA Rfx Carter Cult if indicated+U.LAB.BRZ ordered. EDNV EDMS 20:00 20:00 Test, Urine+UC.LAB.BRZ ordered. [facility] EDNV 20:00 19:58 PMHx: Asthma; kb4 kb4 20:00 19:58 PSHx: ; kb4 kb4 : 19:58 PSHx: tubal ligation; kb4 kb4 :: PSHx: Appendectomy; kb4 kb4
--- NOTE | 2024-12-21 21:41 | ER ---
Nurse's Notes [facility] Name: Libra Baptiste Age: 39 yrs Sex: Female : 1985 Arrival Date: 12/21/2024 Time: 19:50 Bed 20 Private MD: Diagnosis: Lower abdominal pain, unspecified;Urinary frequency Presentation: 12/21 19:55 Chief complaint: Patient states: bright red vag spotting, frequent urination, L lower kb4 abd pain w/ cramps. Coronavirus screen: At this time, the client does not indicate any symptoms associated with coronavirus-19. Ebola Screen: No symptoms or risks identified at this time. Initial Sepsis Screen: Does the patient meet any 2 criteria? No. Patient's initial sepsis screen is negative. Does the patient have a suspected source of infection? No. Patient's initial sepsis screen is negative. Risk Assessment: Do you want to hurt yourself or someone else? Patient reports no desire to harm self or others. Onset of symptoms was December 19, 2024. 19:55 Method Of Arrival: Ambulatory 4 19:55 Acuity: SHIV 3 kb4 Triage Assessment: 19:58 General: Appears comfortable, Behavior is calm, cooperative. Pain: Complains of pain in kb4 left lower quadrant Pain currently is 3 out of 10 on a pain scale. 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 - Infectious Disease History:: Denies. - Social history:: Smoking status: Patient reports the use of cigarette tobacco products, smokes one pack cigarettes per day. Patient uses alcohol, occasionally. Screenin:13 [facility] ED Fall Risk Assessment (Adult) History of falling in the last 3 months, me1 including since admission No falls in past 3 months (0 pts) Confusion or Disorientation No (0 pts) Intoxicated or Sedated No (0 pts) Impaired Gait No (0 pts) Mobility Assist Device Used No (0 pt) Altered Elimination No (0 pt) Score/Fall Risk Level 0 - 2 = Low Risk Maintained a safe environment, Provided non-skid footwear, Hourly rounding (assess needs \T\ fall precautionary measures) done. Abuse screen: Denies threats or abuse. Nutritional screening: No deficits noted. Tuberculosis screening: No symptoms or risk factors identified. Assessment: 20:13 General: Appears in no apparent distress. well groomed, well developed, well nourished, me1 Behavior is calm, cooperative, appropriate for age, Reports bright red vag spotting, frequent urination, L lower abd pain w/ cramps. Pain: Complains of pain in abdomen and left lower quadrant Pain does not radiate. Pain currently is 4 out of 10 on a pain scale. Quality of pain is described as crampy, Pain began 2-3 days ago. Is continuous. Neuro: Level of Consciousness is awake, alert, obeys commands, Oriented to person, place, time, situation, Appropriate for age. Cardiovascular: Patient's skin is warm and dry. Respiratory: Airway is patent Respiratory effort is even, unlabored, Respiratory pattern is regular, symmetrical. GI: Bowel sounds present X 4 quads. Abd is soft X 4 quads Reports lower abdominal pain. : Reports pain in left in suprapubic area lower quadrant(s) urinary frequency, vaginal bleeding that is bright red, spotty. EENT: No signs and/or symptoms were reported regarding the EENT system. Derm: Skin is intact, is healthy with good turgor, Skin is normal. Musculoskeletal: Circulation, motion, and sensation intact. Range of motion: intact in all extremities. Vital Signs: 19:55 BP 172 / 106; Pulse 98; Resp 18; Temp 97.7; Pulse Ox 99% ; kb4 20:00 BP 129 / 99; Pulse 79; Resp 16; Pulse Ox 99% ; me1 21:00 BP 130 / 96; Pulse 87; Resp 15; Pulse Ox 100% ; me1 21:45 BP 133 / 98; Pulse 78; Resp 18; Pulse Ox 99% on R/A; kb4 ED Course: 19:52 Patient arrived in ED. mr 19:54 [facility]C [facility] kb 19:54 Emanuel Young MD is Attending Physician. kb 19:58 Triage completed. kb4 19:58 Arm band placed on right wrist. kb4 20:01 Maame Syed, HOLA is Primary Nurse. kb4 20:11 Test, Urine Sent. me1 20:11 UA Rfx Carter Cult if indicated Sent. me1 20:11 Urine collected: clean catch specimen, clear, arjun colored. me1 20:13 Patient has correct armband on for positive identification. Bed in low position. Call [facility] light in reach. Side rails up X 1. Provided Education on: POC. Verbalized understanding.. Client placed on continuous cardiac and pulse oximetry monitoring. NIBP monitoring applied. Pulse ox on. NIBP on. Warm blanket given. 20:13 No provider procedures requiring assistance completed. me1 20:58 CT Stone Protocol In Process Unspecified. EDMS 21:46 Patient did not have IV access during this emergency room visit. kb4 Administered Medications: No medications were administered Medication: 20:13 VIS not applicable for this client. me1 Outcome: 21:41 Discharge ordered by . kb 21:46 Discharged to home ambulatory, kb4 21:46 Condition: good 21:46 Discharge instructions given to patient left prior to written discharge instructions being given, provider spoke with patient and provided verbal instructions 21:59 Patient left the ED. kb4 Signatures: Dispatcher [employer] ED[facility] Tala Charles, MAINTENANCE WORKER HOUSE TRAILER-C MAINTENANCE WORKER HOUSE TRAILER-Ckb Yany Olvera, Reg Reg mr Yamilet Jean, RN RN me1 Maame Syed, RN RN kb4 Corrections: (The following items were deleted from the chart) 20:00 19:58 PMHx: Asthma; kb4 kb4 20:00 19:58 PSHx: ; kb4 kb4 20:00 19:58 PSHx: tubal ligation; kb4 kb4 20:00 19:58 PSHx: Appendectomy; kb4 kb4 20:13 19:55 Chief complaint: Patient states: bright red vag spotting, frequent urination, L me1 lower abd pain w/ cramps kb4
[2024-12-21 22:25] VITALS: TEMP 97.7
[2024-12-21 22:29] VITALS: BP 133/98; O2SAT 99
== END 2024-12-21 21:59 | disposition home or self-care (01) ==
LOC: ER 19:50
DX: R10.32 Left lower quadrant pain (principal); R35.0 Frequency of micturition; F17.210 Nicotine dependence, cigarettes, uncomplicated
CPT/HCPCS: 74176; 76377; 81001; 81025; 99283